=== PATIENT | male | born 1960 | race Caucasian/White ===

== ENCOUNTER 2020-10-09 09:56 | Outpatient (REF) | payer OTHER, SELFPAY ==
--- NOTE | 2020-10-09 | US_ITS ---
EXAMINATION: US EXTRACRANIAL CAROTID DUPLEX, BILATERAL CLINICAL INFORMATION: Carotid stenosis COMPARISON: Previous exam September 2019 TECHNIQUE: Real-time ultrasound and Doppler techniques (integrating B-mode 2-D vascular images, Doppler spectral analysis and color-flow Doppler imaging) were utilized to interrogate the extracranial carotid arteries, the vertebral arteries and proximal subclavian arteries bilaterally. The degree of stenosis is determined by criteria similar to NASCET. FINDINGS: Right Side: 1. There is mild atherosclerotic plaque seen in the bifurcation/proximal ICA region. 2. The common carotid artery PSV proximally is 113 cm/s and distally 103 cm/s. 3. The proximal internal carotid artery velocities are 94 cm/s systolic and 24 cm/s diastolic. 4. The proximal external carotid artery PSV is 123 cm/s. 5. The vertebral artery shows antegrade flow. 6. The subclavian artery waveforms are normal. Left Side: 1. There is mild atherosclerotic plaque seen in the bifurcation/proximal ICA region. 2. The common carotid artery PSV proximally is 111 cm/s and distally 111 cm/s. 3. The proximal internal carotid artery velocities are 97 cm/s systolic and 24 cm/s diastolic. 4. The proximal external carotid artery PSV is 131 cm/s. 5. The vertebral artery shows antegrade flow. 6. The subclavian artery waveforms are normal. US/US abdominal aortic aneurysm IMPRESSION: 1. RIGHT: Mild atherosclerotic plaque. 0-49% right ICA stenosis. 2. LEFT: Mild atherosclerotic plaque. 0-49% left ICA stenosis. 3. There is no change in the category severity of disease when compared to the previous study dated September 2019.
--- NOTE | 2020-10-09 | US_ITS ---
EXAMINATION: US EXTRACRANIAL CAROTID DUPLEX, BILATERAL CLINICAL INFORMATION: Carotid stenosis COMPARISON: Previous exam September 2019 TECHNIQUE: Real-time ultrasound and Doppler techniques (integrating B-mode 2-D vascular images, Doppler spectral analysis and color-flow Doppler imaging) were utilized to interrogate the extracranial carotid arteries, the vertebral arteries and proximal subclavian arteries bilaterally. The degree of stenosis is determined by criteria similar to NASCET. FINDINGS: Right Side: 1. There is mild atherosclerotic plaque seen in the bifurcation/proximal ICA region. 2. The common carotid artery PSV proximally is 113 cm/s and distally 103 cm/s. 3. The proximal internal carotid artery velocities are 94 cm/s systolic and 24 cm/s diastolic. 4. The proximal external carotid artery PSV is 123 cm/s. 5. The vertebral artery shows antegrade flow. 6. The subclavian artery waveforms are normal. Left Side: 1. There is mild atherosclerotic plaque seen in the bifurcation/proximal ICA region. 2. The common carotid artery PSV proximally is 111 cm/s and distally 111 cm/s. 3. The proximal internal carotid artery velocities are 97 cm/s systolic and 24 cm/s diastolic. 4. The proximal external carotid artery PSV is 131 cm/s. 5. The vertebral artery shows antegrade flow. 6. The subclavian artery waveforms are normal. US/US carotid duplex BI IMPRESSION: 1. RIGHT: Mild atherosclerotic plaque. 0-49% right ICA stenosis. 2. LEFT: Mild atherosclerotic plaque. 0-49% left ICA stenosis. 3. There is no change in the category severity of disease when compared to the previous study dated September 2019.
== END 2020-10-09 09:57 | disposition home or self-care (01) ==
LOC: HO.HMGCX 09:56
PROVIDERS: PCP Nurse Practitioner Family; Visit Provider Surgery Vascular Surgery
DX: I65.23 Occlusion and stenosis of bilateral carotid arteries (principal); I71.4 Abdominal aortic aneurysm, without rupture
CPT/HCPCS: 76706; 93880

== ENCOUNTER 2020-10-26 16:33 | Outpatient (REF) | payer OTHER, SELFPAY | END 2020-10-26 16:34 | disposition home or self-care (01) | LOC: HO.LAB 16:33 | PROVIDERS: Visit Provider Internal Medicine | DX: Z20.828 Contact with and (suspected) exposure to other viral communicable diseases (principal) | CPT/HCPCS: C9803; U0003 ==

== ENCOUNTER → 2020-11-01 14:37 | Outpatient (BNVA) | payer OTHER, SELFPAY | PROVIDERS: PCP Nurse Practitioner Family; Visit Provider Surgery Vascular Surgery | DX: Z76.89 Persons encountering health services in other specified circumstances (principal) ==

== ENCOUNTER 2021-04-22 16:28 | Outpatient (REF) | payer OTHER, SELFPAY ==
--- NOTE | ~2021-04-22 | XR_ITS ---
EXAMINATION: XR HAND, LEFT CLINICAL INFORMATION: Crush injury, pain index finger COMPARISON: None TECHNIQUE: PA, lateral, and oblique views of the left hand. FINDINGS: There is no acute or healing fracture, dislocation, destructive process. No visible radiopaque soft tissue foreign body digits. There are degenerative changes involving the DIP joints and borderline degenerative changes PIP joint. Metallic staple-like structure overlies the distal lateral forearm soft tissues 3.6 cm from the radial carpal compartment. The pronator quadratus fat pad appears normal. The ulnar variance is neutral. XR/XR hand LT min 3V IMPRESSION: 1. No fracture or dislocation. 2. Osteoarthritis DIP joints.
== END 2021-04-22 16:29 | disposition home or self-care (01) ==
LOC: HO.HMGCX 16:28
PROVIDERS: PCP Nurse Practitioner Family; Visit Provider Nurse Practitioner Family
DX: S67.22XA Crushing injury of left hand, initial encounter (principal)
CPT/HCPCS: 73130

== ENCOUNTER 2021-11-22 07:47 | Outpatient (REF) | payer OTHER, SELFPAY ==
--- NOTE | ~2021-11-22 | US_ITS ---
EXAMINATION: US RETROPERITONEAL LIMITED (AORTA) CLINICAL INFORMATION: Abdominal aortic aneurysm without rupture. COMPARISON: Ultrasound aorta 10/09/2020 and 09/16/2019. TECHNIQUE: Brothers-scale, color Doppler and spectral Doppler evaluation of the abdominal aorta. FINDINGS: There is atherosclerotic disease. The measurements of the aorta in maximum AP and transverse dimensions respectively are as follows: Proximal: 2.6 x 1.8 cm. Mid: 1.9 x 1.9 cm. Distal: 2.5 x 3.3 cm. PSV: 66.0 cm/s. The measurements of the common iliac arteries in maximum AP and TRV dimensions are as follows: Right Common Iliac Artery: 1.1 x 1.0 cm. Left Common Iliac Artery: 1.1 x 1.1 cm. US/US abdominal aortic aneurysm IMPRESSION: Infrarenal abdominal aortic aneurysm measuring 3.3 cm. This has mildly enlarged compared to 09/16/2019, consider further evaluation with CTA or MRA.
== END 2021-11-22 07:48 | disposition home or self-care (01) ==
LOC: HO.US 07:47
PROVIDERS: PCP Nurse Practitioner Family; Visit Provider Surgery Vascular Surgery
DX: I71.4 Abdominal aortic aneurysm, without rupture (principal)
CPT/HCPCS: 76706

== ENCOUNTER → 2021-11-26 10:52 | Outpatient (BNVA) | payer OTHER, SELFPAY | PROVIDERS: PCP Nurse Practitioner Family; Visit Provider Surgery Vascular Surgery ==

== ENCOUNTER 2022-05-05 08:35 | Outpatient (REF) | payer OTHER, SELFPAY ==
[2022-05-05 11:31] LABS: MANUAL DIFF FLAG NO
[2022-05-05 11:41] LABS: Basophils Percent Auto 0.7 % (0-2); Eosinophils Absolute Auto 0.1 X10*3/uL (0.0-0.4); Eosinophils Percent Auto 1.9 % (0-4); Hematocrit 41.6 % (42.0-52.0); Hemoglobin 13.8 g/dl (14.0-18.0); Imm Gran Abs Auto 0.01 X10*3/uL (0.00-0.03); Imm Gran Pct Auto 0.2 % (0.0-0.4); Lymphocytes Absolute Auto 1.9 X10*3/uL (1.2-4.9); Lymphocytes Percent Auto 32.2 % (20-40); Mean Corpuscular HGB Conc 33.2 g/dl (31.0-36.0); Mean Corpuscular Hemoglobin 31.9 pg (27.0-33.0); Mean Corpuscular Volume 96.1 fL (80.0-98.0); Monocytes Absolute Auto 0.7 X10*3/uL (0.1-1.2); Monocytes Percent Auto 11.1 % (2-11); Neutrophils Absolute Auto 3.2 x10*3/uL (2.0-8.3); Neutrophils Percent Auto 53.9 % (45-73); Platelet Count 264 X10*3/uL (160-400); Red Blood Count 4.33 X10*6/uL (4.60-5.80); Red Cell Distribution Width 12.5 % (11.0-16.0); White Blood Count 5.8 X10*3/uL (4.8-10.8)
[2022-05-05 12:30] LABS: HBc Num1 0.14 S/CO (0.00-0.79); HBsAGNum1 0.22 S/CO (0.00-0.99); HIV AB/AG Nonreactive (Nonreactive); Hepatitis B Core Antibody Nonreactive (Nonreactive); Hepatitis B Surface Antigen Negative (Negative); ~HepC Num1 0.07 S/CO (0.00-0.79); ~Hepatitis B Surface Antibody REACTIVE (Nonreactive); ~Hepatitis C Antibody Nonreactive (Nonreactive)
[2022-05-05 12:31] LABS: Prostate Specific Antigen Scr 2.75 ng/mL (<0.05-4.0); TSH reflex Free T4 1.77 uIU/mL (0.32-4.0)
[2022-05-05 12:33] LABS: Alanine Aminotransferase 25 U/L (0-40); Albumin Level 3.9 g/dL (3.5-5.0); Alkaline Phosphatase 79 U/L (39-117); Anion Gap 13 (12-20); Aspartate Amino Transferase 32 U/L (5-37); Bilirubin Total 0.5 mg/dL (0.0-1.0); Blood Urea Nitrogen 24 mg/dL (9-16); C Reactive Protein 0.09 mg/dL (< or = 0.50); Calcium 9.1 mg/dL (8.4-10.2); Carbon Dioxide 25 mmol/L (22-29); Chloride 108 mmol/L (96-108); Cholesterol 109 mg/dL; Estimated Glomerular Filt Rate > 60; Glucose Fasting 115 mg/dL (60-99); HDL Cholesterol 32 mg/dL; LDL Cholesterol Calculated 61 mg/dl; Potassium 5.2 mmol/L (3.3-5.1); Sodium 141 mmol/L (135-145); Total Protein 6.7 g/dL (6.5-8.0); Triglycerides 80 mg/dL
[2022-05-05 12:43] LABS: Appearance Urine CLEAR; Color Urine YELLOW; Glucose Urine UA NEG (NEG); Leukocyte Esterase Urine NEG (NEG); Nitrite Urine NEG (NEG); Specific Gravity - Urine >= 1.030 (1.005-1.025); Urine Blood NEG (NEG); Urine Ketones NEG (NEG); Urine Protein NEG (NEG-TRACE)
[2022-05-05 12:48] LABS: Erythrocyte Sedimentation Rate 6 MM/HR (0-15)
[2022-05-07 08:10] LABS: Hepatitis A Antibody IgM 0.15 Index (0-0.79); ~Hepatitis A Antibody IgM Nonreactive (Nonreactive)
== END 2022-05-05 08:36 | disposition home or self-care (01) ==
LOC: HO.HMGCLDS 08:35
PROVIDERS: PCP Nurse Practitioner Family; Visit Provider Nurse Practitioner Family
DX: Z12.5 Encounter for screening for malignant neoplasm of prostate (principal); Z11.4 Encounter for screening for human immunodeficiency virus [HIV]; R63.4 Abnormal weight loss
CPT/HCPCS: 36415; 80053; 80061; 81003; 84153; 84443; 85025; 85652; 86140; 86704; 86706; 86709; 86803; 87340; 87389

== ENCOUNTER 2022-06-04 11:00 | Outpatient (REF) | payer OTHER, SELFPAY ==
[2022-06-04 13:50] LABS: Anion Gap 13 (12-20); Carbon Dioxide 24 mmol/L (22-29); Chloride 107 mmol/L (96-108); Potassium 4.7 mmol/L (3.3-5.1); Sodium 139 mmol/L (135-145)
== END 2022-06-04 11:01 | disposition home or self-care (01) ==
LOC: HO.HMGCLDS 11:00
PROVIDERS: PCP Nurse Practitioner Family; Visit Provider Nurse Practitioner Family
DX: E87.5 Hyperkalemia (principal)
CPT/HCPCS: 36415; 80051

== ENCOUNTER → 2022-07-09 12:40 | Outpatient (REF) | payer OTHER, SELFPAY ==
--- NOTE | 2022-07-09 12:43 | CA_ITS ---
Transthoracic Echocardiogram Patient (Last, First, Middle): Neftali Carney, Gender: Male Date of : 1960 Age: 62 Procedure Date: 07/09/2022 Procedure Type: Transthoracic Echocardiogram Location: OP Height: 172.72 cm Weight: 72.58 kg BSA: 1.86 m2 Heart Rate: 61 bpm BP: 130 / 75 mmHg [employer] Trimmer: CARL Green MD: Cleveland Sanchez [facility] License Distributor: Phillip Wren MD Symptoms: R01.1 - Cardiac murmur, unspecified Study Quality: Adequate ECG Rhythm: Sinus Conclusions: - 1. Normal LV systolic function with grade 1 diastolic dysfunction 2. Mild tricuspid regurgitation 3. Normal RV systolic pressure 4. No gross pericardial effusion Findings Left Ventricle Normal left ventricular size, thickness, and systolic function. The visually estimated ejection fraction is between 55-60%. Spectral Doppler is indicative of an impaired relaxation filling pattern. E/E prime ratio is <8, consistent with normal filling pressures. Evidence suggests grade I (mild) diastolic dysfunction. Right Ventricle Normal right ventricular cavity size and systolic function. Atria Both atria are normal in size. Interatrial shunt cannot be excluded. Aortic Valve Normal aortic valve structure and function. There is no aortic valve stenosis. There is no aortic valve regurgitation. Mitral Valve Normal mitral valve structure and function. There is trace mitral valve regurgitation. There is no mitral valve stenosis. Pulmonic Valve The pulmonic valve is likely normal. Tricuspid Valve Normal tricuspid valve structure. There is mild tricuspid valve regurgitation. The right ventricular systolic pressure is normal. The right ventricular systolic pressure is 23 mmHg. Normal right atrial pressure. There is no evidence of pulmonary hypertension. Great Vessels All visible segments of the aorta are normal in size. The pulmonary artery was not well visualized. Venous The inferior vena cava is normal in size and collapses greater than 50% with inspiration. Pericardium/Pleural There is no evidence of pericardial effusion. Prior Study Comparison No prior study available for comparison. Measurements 2D Linear Measurements IVSd: 0.90 0.6-0.9/0.6-1.0 cm LVIDd: 4.67 3.9-5.3/4.2-5.9 cm LVIDd Index: 2.51 2.4-3.2/2.2-3.1 cm/m2 LVIDs: 2.51 2.0-3.6 cm LVPWd: 0.95 0.7-1.1 cm LA Diam: 3.40 2.7-3.8/3.0-4.0 cm LAIDs Index: 1.83 1.5-2.3 cm/m2 LV Mass: 182.33 67-162/88-224 g LV Mass Index: 98.03 43-95/49-115 g/m2 LVOT Diam: 2.10 3.0+(-)1.3 cm 2D Systolic Function EF 4C: 57.80 >55% EF 2C: 55.00 >55% EF BiP: 56.90 >55% Mitral Valve MV Pk E: 0.60 MV PK A: 0.75 MV Decel Time: 218.00 E/A: 0.80 E'Lateral: 10.90 E'Medial: 8.70 E/E' Med: 6.90 E/E' Lat: 5.50 PHT: 64.00 MVA PHT: 3.44 Decel [place]: 2.74 Aortic Valve AoV Pk Beni: 1.36 AoV Mn Beni: 0.96 AoV VTI: 0.31 AoV Pk Grad: 7.00 Aov Mn Grad: 4.00 LEANA Cont.VTI: 2.44 LVOT LVOT Pk Beni: 1.04 LVOT Mn Beni: 0.72 LVOT VTI: 0.22 LVOT Pk Grad: 4.00 LVOT Mn Grad: 2.00 LVOT Diam: 2.10 LVOT Area: 3.46 Diastolic Function MV Pk E: 0.60 MV Pk A: 0.75 E/A: 0.80 E'Medial: 8.70 E/E' Med: 6.90 E' Laterial: 10.90 E/E' Lat: 5.50 Right Ventricle TAPSE (mm): 15.20 TVS' Beni: 9.68 Tricuspid Valve TR Pk Beni: 2.22 TR Pk Grad: 20.00 RA Press: 3.00 RVSP: 23.00 Great Vessels Aorta Sinus of Valsalva: 2.90 2.0-3.5 cm Ao Asc: 3.40 2.1-3.4 cm Pulmonary Valve PV Pk Beni: 1.17 Peak PV Grad: 5.00 Updated in Other Vendor System with Status of Final Phillip Wren MD electronically signed on 07/11/2022 10:12:42 AM with status of Final
== END ==
LOC: HO.CARD 12:40
PROVIDERS: PCP Nurse Practitioner Family; Visit Provider Nurse Practitioner Family
DX: R01.1 Cardiac murmur, unspecified (principal)
CPT/HCPCS: 93306

== ENCOUNTER 2022-12-02 09:13 | Outpatient (REF) | payer OTHER, SELFPAY ==
--- NOTE | ~2022-12-02 | US_ITS ---
EXAMINATION: US RETROPERITONEAL LIMITED (AORTA) CLINICAL INFORMATION: Abdominal aortic aneurysm, without rupture. COMPARISON: US retroperitoneal limited (aorta) 11/22/2021 and 10/09/2020. TECHNIQUE: Brothers-scale, color Doppler and spectral Doppler evaluation of the abdominal aorta. FINDINGS: The distal abdominal aorta demonstrates calcific atherosclerotic change and dilatation at 3.3 cm and unchanged from the 11/22/2021 study. The measurements of the aorta in maximum AP and transverse dimensions respectively are as follows: Proximal: 2.9 x 3.0 cm. Mid: 2.4 x 2.3 cm. Distal: 2.8 x 3.3 cm. PSV: 100 cm/s. The measurements of the common iliac arteries in maximum AP and TRV dimensions are as follows: Right Common Iliac Artery: 1.2 x 1.0 cm. Left Common Iliac Artery: 1.2 x 1.3 cm. US/US abdominal aortic aneurysm IMPRESSION: Infrarenal abdominal aortic aneurysm measuring 3.3 cm. Follow up study is recommended in 3 years' time.
--- NOTE | ~2022-12-02 | US_ITS ---
EXAMINATION: US EXTRACRANIAL CAROTID DUPLEX, BILATERAL CLINICAL INFORMATION: Carotid occlusion/stenosis. COMPARISON: 10/09/2020 TECHNIQUE: Real-time ultrasound and Doppler techniques (integrating B-mode 2-D vascular images, Doppler spectral analysis and color-flow Doppler imaging) were utilized to interrogate the extracranial carotid arteries, the vertebral arteries and proximal subclavian arteries bilaterally. The degree of stenosis is determined by criteria similar to NASCET. FINDINGS: Right Side: 1. There is mild atherosclerotic plaque seen in the bifurcation/proximal ICA region. 2. The common carotid artery PSV proximally is 122 cm/s and distally 97 cm/s. 3. The proximal internal carotid artery velocities are 71 cm/s systolic and 14 cm/s diastolic. 4. The proximal external carotid artery PSV is 106 cm/s. 5. The vertebral artery shows antegrade flow. 6. The subclavian artery waveforms are normal. Left Side: 1. There is mild atherosclerotic plaque seen in the bifurcation/proximal ICA region. 2. The common carotid artery PSV proximally is 115 cm/s and distally 98 cm/s. 3. The proximal internal carotid artery velocities are 128 cm/s systolic and 23 cm/s diastolic. At the time of the prior exam, maximal velocity was 97 cm/s and therefore disease class has increased. 4. The proximal external carotid artery PSV is 102 cm/s. 5. The vertebral artery shows antegrade flow. 6. The subclavian artery waveforms are normal. US/US carotid duplex BI IMPRESSION: 1. RIGHT: Minimal, non-hemodynamically significant stenosis of the proximal right internal carotid artery corresponding to a 0-49% stenosis by velocity criteria. 2. LEFT: Moderate, hemodynamically significant stenosis of the proximal left internal carotid artery corresponding to a 50-79% stenosis by velocity criteria, increasing from 0-49% at the time of the prior 10/09/2020 study.
== END 2022-12-02 09:14 | disposition home or self-care (01) ==
LOC: HO.US 09:13
PROVIDERS: PCP Nurse Practitioner Family; Visit Provider Surgery Vascular Surgery
DX: I65.23 Occlusion and stenosis of bilateral carotid arteries (principal); I71.40 Abdominal aortic aneurysm, without rupture, unspecified
CPT/HCPCS: 76706; 93880

== ENCOUNTER → 2022-12-04 12:58 | Outpatient (BNVA) | payer OTHER, SELFPAY | PROVIDERS: PCP Nurse Practitioner Family; Visit Provider Surgery Vascular Surgery | DX: Z13.89 Encounter for screening for other disorder (principal) ==

== ENCOUNTER 2023-11-11 09:43 | Outpatient (REF) | payer OTHER, SELFPAY | END 2023-11-11 09:44 | disposition home or self-care (01) | LOC: HO.US 09:43 | PROVIDERS: PCP Nurse Practitioner Family; Visit Provider Surgery Vascular Surgery | DX: I65.23 Occlusion and stenosis of bilateral carotid arteries (principal) | CPT/HCPCS: 93880 ==

== ENCOUNTER 2023-12-08 08:39 | Outpatient (AMB) | payer OTHER, SELFPAY ==
[2023-12-08 08:55] VITALS: BP 116/70; PULSE 71; O2SAT 100; BMI 25.1
--- NOTE | 2023-12-08 08:55 | MHC.OFFVIS ---
Intake Vital Signs 12/08/23 08:55 12/08/23 08:59 Height 5 ft 7 in Weight 160 lb BMI 25.1 BP 116/70 108/68 Blood Pressure Location Lt brachial Rt brachial Position Sitting Sitting Pulse 71 Pulse Source Pulse Oximeter Pulse Oximetry (%) 100 Oxygen Delivery Method Room Air Intake Visit Reasons: 1 yr follow up carotid US 11/11/23 Intake Note: Pt presents to the office today for a 1 year follow up carotid US 11/11/23. Pt states he is feeling well and denies any concerns at this time. Allergies Penicillins [PENICILLINS] Allergy (Unknown, Verified 12/08/23 09:00) THROAT SWELLED UP HPI 1 yr follow up carotid US 11/11/23 HPI Details Very pleasant 63-year-old gentleman presents for surveillance follow-up regarding carotids. Workup initially began about 5 years ago when he had CABG performed. At that time they did appreciate some carotid stenosis. In addition there was question of an aortic aneurysm. Now presents for routine follow-up with surveillance carotid ultrasound. COUNTS INCLUDE 234 BEDS AT THE [facility] Surgical History History of back surgery History of open heart surgery (~2017) Social History Housing: House Patient Tobacco Use Status: Former Tobacco user Quit Date: quit e-Cigarette/Vaping Use: Never Used Second Hand Smoke Exposure: No service: No Current occupational status: retired Cognitive needs: No Hearing needs: No Vision needs: No Review of Systems Const All systems reviewed & are unremarkable except as noted in HPI and below Reports no additional complaints ENT Reports Normal hearing present Card Denies chest pain, Denies chest pain at rest, Denies chest pain with activity and Denies pedal edema Resp Denies cough GI Denies abdominal pain Musc Denies abnormal gait, Denies muscle cramps and Denies radiating pain into limb Skin/Breast Denies skin ulcer and Denies wounds Neuro Reports Normal hearing present and Denies abnormal gait Psych Reports no additional complaints Physical Exam Vital Signs: Last Vital Signs Pulse 71 12/08/23 08:55 BP 108/68 12/08/23 08:59 Pulse Ox 100 12/08/23 08:55 Oxygen Delivery Method Room Air 12/08/23 08:55 BMI result Body Mass Index 25.1 Const General: cooperative, healthy appearing and comfortable Orientation/consciousness: oriented to person, oriented to place and oriented to time HEENT Head: Yes normal to inspection Neck Neck: Yes normal visual inspection Carotids: no bruits Chest Chest palpation & inspection: normal inspection of the chest Resp Effort & Inspection: normal respiratory effort and able to speak in complete sentences Auscultation: clear to auscultation bilaterally, no crackles, no rales, no rhonchi and no wheezes Cardio Rate: regular rate Rhythm: regular rhythm Heart sounds: S1 normal heart sound present and S2 normal heart sound present Bruits: no carotid bruits Peripheral pulses: Peripheral pulses 2+ throughout GI Inspection: Yes normal to inspection Skin Wounds: no wounds Hair: normal Neuro General: oriented to person, oriented to place and oriented to time Cranial nerves: Yes CN's II-XII intact bilaterally and Yes Normal hearing present Cognition (Neuro): normal cognition Motor exam (neuro): 5/5 motor strength present throughout Extrem Other: venous exam: No significant superficial varicosities or spider telangiectasias, minimal edema General: No clubbing, No cyanosis and No edema Psych Appearance: grossly normal Mental Status: mental status grossly normal Speech and movement: Normal speech and movement present Results Reviewed Results Reviewed: Carotid ultrasound dated 11/11/2023 demonstrates bilateral 0-49% stenosis Assessment & Plan Assessment & Plan (1) Carotid stenosis, bilateral: Code(s): I65.23 - Occlusion and stenosis of bilateral carotid arteries Plan: In short patient has asymptomatic carotid disease. We have reviewed signs and symptoms of a stroke. We also discussed risk factor modification inclusive a healthy diet low in cholesterol. The patient will follow up with us with surveillance ultrasound of the carotids 1 year. Should there be any changes or signs or symptoms of a stroke we will be happy to see them back sooner. Thank you for allowing us to participate in this patient's care. If there are any questions or concerns please do not hesitate to contact us. (2) AAA (abdominal aortic aneurysm) without rupture: Code(s): I71.4 - Abdominal aortic aneurysm, without rupture Qualifiers: Abdominal aorta location: infrarenal aorta Qualified Code(s): I71.43 - Infrarenal abdominal aortic aneurysm, without rupture Plan: 12/02/2022 measured 3.3 cm. Yasmin ruiz in 3-5 years Orders: Orders US carotid duplex BI 364 Days I65.23 - Occlusion and stenosis of bilateral carotid arteries Coding Level of Care Code Est Pt Level 4 (11482) Diagnoses Carotid stenosis, bilateral I65.23 Infrarenal abdominal aortic aneurysm (AAA) without rupture I71.43 Abdominal aorta location: infrarenal aorta
[2023-12-08 08:59] VITALS: BP 108/68
== END 2023-12-08 09:25 | disposition home or self-care (01) ==
PROVIDERS: PCP Nurse Practitioner Family; Visit Provider Surgery Vascular Surgery
DX: I65.23 Occlusion and stenosis of bilateral carotid arteries (principal); I71.43 Infrarenal abdominal aortic aneurysm, without rupture
CPT/HCPCS: 99213

== ENCOUNTER → 2023-12-08 08:39 | Outpatient (BNVA) | payer OTHER, SELFPAY | PROVIDERS: PCP Nurse Practitioner Family; Visit Provider Surgery Vascular Surgery ==

== ENCOUNTER 2024-06-02 08:52 | Outpatient (AMB) | payer OTHER, SELFPAY ==
--- NOTE | 2024-06-02 09:02 | MHC.PC.OV ---
Vital Signs 06/02/24 09:03 Height 5 ft 7 in Weight 151 lb BMI 23.6 BP 116/80 Blood Pressure Location Lt brachial Position Sitting Pulse 64 Pulse Source Pulse Oximeter Pulse Oximetry (%) 100 Oxygen Delivery Method Room Air Intake Visit Reasons: Medications F/U Intake Note: Patient here to follow up on meds. Allergies Penicillins [PENICILLINS] Allergy (Unknown, Verified 06/02/24 09:04) THROAT SWELLED UP Medication List - Last Reconciled 06/02/24 by LORI Sorenson aspirin 81 mg PO DAILY atorvastatin 80 mg PO BEDTIME 90 days bupropion HCl XL 300 mg PO DAILY metoprolol succinate ER 25 mg PO DAILY Tobacco use date assessed: 06/02/24 Dental Screening Dental Screen Date: 06/02/24 Did you have a dental visit in the last 12 months?: No Did you have a dental problem in the last 6 months where you did not have access to dental care?: No Was dental information given to patient?: Patient has dentist HPI Medications F/U HPI Details Pt has a hx of elevated fasting blood sugar. Will repeat labs. Denies polyuria, polydipsia, and neuropathy. Pt follows up with cardiology and vascular. Due for PSA, will order. Denies dribbling with urination, weak stream, and frequent nocturia. [facility] Surgical History History of back surgery History of open heart surgery (~2017) Social History Housing: House Patient Tobacco Use Status: Former Tobacco user e-Cigarette/Vaping Use: Never Used Second Hand Smoke Exposure: No service: No Current occupational status: retired Cognitive needs: No Hearing needs: No Vision needs: No Questionnaire PHQ-9 Over the last 2 weeks, how often have you been bothered by any of the following problems? 1. Little interest or pleasure in doing things: not at all 2. Feeling down, depressed, or hopeless: not at all 3. Trouble falling or staying asleep, or sleeping too much: not at all 4. Feeling tired or having little energy: not at all 5. Poor appetite or overeating: not at all 6. Feeling bad about yourself - or that you are a failure or have let yourself or your family down: not at all 7. Trouble concentrating on things, such as reading the newspaper or watching television: not at all 8. Moving or speaking so slowly that other people could have noticed. Or the opposite - being so fidgety or restless that you have been moving around a lot more than usual: not at all 9. Thoughts that you would be better off or of hurting yourself in some way: not at all Total score: 0 Depression Screening Interpretation: Negative Depression Screening Done: Yes 37069 - PHQ-9 Billing: Yes Source: Developed by Drs. Luis Magaña, Barbara Pelletier, Dennis Rosenthal and colleagues, with an educational tennille from [employer]. Thrive Questionnaire Date Thrive assessed: 05/26/24 I am a: Patient What is your living situation today?: I choose not to answer this question Within the past 12 months, did the food you bought not last and you didn't have the money to get more?: Never true Within the past 12 months, did you worry whether your food would run out before you got money to buy more?: Never true Do you have trouble paying for medicines?: No Do you have trouble getting transportation to medical appointments?: No Do you have trouble paying your heating and electricity bill?: No Do you have trouble taking care of your child, family member or friend?: No Do you have trouble with day-to-day activities such as bathing, preparing meals, shopping, managing finances, etc.?: No Are you currently unemployed and looking for a job?: No Are you interested in more education?: No Please select the resources that you would like help with: Housing/Half-Way Currently or been in a relationship where the following occur: No concerns reported THRIVE Score: 0 AUDIT C Alcohol Use Questionnaire (AUDIT-C) 1. How often do you have a drink containing alcohol?: Monthly or less 2. How many drinks containing alcohol do you have on a typical day when you are drinking?: 1 or 2 3. How often do you have six or more drinks on one occasion?: Never Total Score: 1 Score Reviewed/Action Taken: Yes CIRO-7 AMB Questionnaire CIRO-7 Date CIRO - 7 assessed: 06/02/24 Feeling nervous, anxious, or on edge: 0 = Not at all Not being able to stop or control worryin = Not at all Worrying too much about different things: 0 = Not at all Trouble relaxin = Not at all Being so restless that it is hard to sit still: 0 = Not at all Becoming easily annoyed or irritable: 0 = Not at all Feeling afraid as if something awful might happen: 0 = Not at all Total CIRO-7 score (0-4 normal; 5-9 mild; 10-14 moderate; 15-21 severe): 0 Source: Developed by Drs. Luis Magaña, Barbara Pelletier, Dennis Rosenthal and colleagues, with an educational tennille from [employer]. CIRO-7 Assessment Billing CIRO-7 Assessment Tool: CIRO-7 Assessment 12518 Review of Systems Const Reports as per HPI Physical exam (Primary Care) Vital Signs: Last Vital Signs Pulse 64 06/02/24 09:03 BP 116/80 06/02/24 09:03 Pulse Ox 100 06/02/24 09:03 Oxygen Delivery Method Room Air 06/02/24 09:03 BMI result Body Mass Index 23.6 Tobacco/Smoking Status: Tobacco use Status Tobacco use date assessed 06/02/24 06/02/24 09:07 Patient Tobacco Use Status Former Tobacco user 06/02/24 09:03 e-Cigarette/Vaping Use Never Used 06/02/24 09:03 PHQ-9: PHQ-9 Score PHQ-9: Total score 0 06/02/24 09:07 Depression Screening Interpretation: Negative Thrive Assessment: Date of Thrive Assessment Date Thrive assessed 05/26/24 06/02/24 09:03 Currently or been in a relationship where the following occur: No concerns reported Const General: cooperative Orientation/consciousness: patient oriented x3 Neuro General: patient oriented x3 Psych Appearance: grossly normal Mental Status: mental status grossly normal Speech and movement: Normal speech and movement present Affect: normal affect Attitude: cooperative Thought process: Normal thought process present Thought content: Normal thought content present Insight: Good insight present (Psych) Judgement: Good judgement present (Psych) Assessment and Plan Assessment & Plan (1) Elevated fasting blood sugar: Code(s): R73.01 - Impaired fasting glucose Plan: Labs ordered (2) Screening for prostate cancer: Code(s): Z12.5 - Encounter for screening for malignant neoplasm of prostate Plan: PSA ordered Plan The patient agreed to the use of a medical front desk coordinator for this encounter. Scribed for LORI Sterling by Carmen Quintero medical front desk coordinator, on 06/02/2024 at 09:15 EST. Orders: Orders UA CC w/rflx Micro + Cult Today R73.01 - Impaired fasting glucose Lipid Panel Today R73.01 - Impaired fasting glucose Complete Blood Count Auto Diff Today R73.01 - Impaired fasting glucose Comprehensive [place]. Panel Fast Today R73.01 - Impaired fasting glucose TSH reflex Free T4 Today R73.01 - Impaired fasting glucose Prostate Specific Antigen Scr Today Z12.5 - Encounter for screening for malignant neoplasm of prostate Coding Level of Care Code Est Pt Level 3 (49903) Diagnoses Elevated fasting blood sugar R73.01 Screening for prostate cancer Z12.5 Additional Codes CIRO-7 Assessment Billing - CIRO-7 Assessment Tool: CIRO-7 Assessment 94647 ([id number])
[2024-06-02 09:03] VITALS: BP 116/80; PULSE 64; O2SAT 100; BMI 23.6
== END 2024-06-02 10:22 | disposition home or self-care (01) ==
PROVIDERS: PCP Nurse Practitioner Family; Visit Provider Nurse Practitioner Family
DX: R73.01 Impaired fasting glucose (principal); Z12.5 Encounter for screening for malignant neoplasm of prostate
CPT/HCPCS: 99213

== ENCOUNTER 2024-06-22 09:34 | Outpatient (REF) | payer OTHER, SELFPAY ==
[2024-06-22 10:32] LABS: MANUAL DIFF FLAG NO
[2024-06-22 10:36] LABS: Basophils Absolute Auto 0.1 X10*3/uL (0.0-0.2); Basophils Percent Auto 0.9 % (0-2); Eosinophils Absolute Auto 0.2 X10*3/uL (0.0-0.4); Eosinophils Percent Auto 2.3 % (0-4); Hematocrit 43.2 % (42.0-52.0); Hemoglobin 14.7 g/dl (14.0-18.0); Imm Gran Abs Auto 0.02 X10*3/uL (0.00-0.03); Imm Gran Pct Auto 0.3 % (0.0-0.4); Lymphocytes Percent Auto 30.5 % (20-40); Mean Corpuscular Volume 94.1 fL (80.0-98.0); Mean Platelet Volume 10.6 fL (9.4-12.4); Monocytes Absolute Auto 0.7 X10*3/uL (0.1-1.2); Monocytes Percent Auto 10.3 % (2-11); Neutrophils Absolute Auto 3.7 x10*3/uL (2.0-8.3); Neutrophils Percent Auto 55.7 % (45-73); Platelet Count 255 X10*3/uL (160-400); Red Blood Count 4.59 X10*6/uL (4.60-5.80); Red Cell Distribution Width 12.7 % (11.0-16.0); White Blood Count 6.6 X10*3/uL (4.8-10.8)
[2024-06-22 10:46] LABS: Appearance Urine Clear; Color Urine Yellow; Glucose Urine UA Negative (Negative); Leukocyte Esterase Urine Negative (Negative); Nitrite Urine Negative (Negative); Specific Gravity - Urine 1.015 (1.005-1.025); Urine Blood Negative (Negative); Urine Ketones Negative (Negative); Urine Protein Negative (Neg-Trace)
[2024-06-22 11:03] LABS: Alanine Aminotransferase 19 U/L (0-40); Albumin Level 3.9 g/dL (3.5-5.0); Alkaline Phosphatase 71 U/L (39-117); Anion Gap 9 (12-20); Aspartate Amino Transferase 25 U/L (5-37); Bilirubin Total 0.8 mg/dL (0.0-1.0); Blood Urea Nitrogen 15 mg/dL (9-16); Calcium 9.5 mg/dL (8.4-10.2); Carbon Dioxide 30 mmol/L (22-29); Chloride 104 mmol/L (96-108); Cholesterol 125 mg/dL (<200); Estimated Glomerular Filt Rate > 60; Glucose Fasting 114 mg/dL (60-99); HDL Cholesterol 36 mg/dL (>40); LDL Cholesterol Calculated 76 mg/dL (<100); Potassium 5.1 mmol/L (3.3-5.1); Sodium 138 mmol/L (135-145); Total Protein 6.7 g/dL (6.5-8.0); Triglycerides 67 mg/dL (<150)
[2024-06-22 11:07] LABS: TSH reflex Free T4 2.99 uIU/mL (0.32-4.0)
[2024-06-22 11:37] LABS: Prostate Specific Antigen Scr 4.26 ng/mL (<0.05-4.0)
== END 2024-06-22 09:35 | disposition home or self-care (01) ==
LOC: HO.HMGCLDS 09:34
PROVIDERS: PCP Nurse Practitioner Family; Visit Provider Nurse Practitioner Family
DX: Z12.5 Encounter for screening for malignant neoplasm of prostate (principal); Z13.6 Encounter for screening for cardiovascular disorders; R73.01 Impaired fasting glucose
CPT/HCPCS: 36415; 80053; 80061; 81003; 84153; 84443; 85025

== ENCOUNTER 2024-08-08 14:15 | Outpatient (AMB) | payer OTHER, SELFPAY ==
[2024-08-08 14:54] VITALS: BP 110/68; PULSE 110; TEMP 36.6; O2SAT 97; BMI 23.6
--- NOTE | 2024-08-08 14:54 | MHC.OFFWIV ---
Intake Vital Signs 08/08/24 14:54 Height 5 ft 7 in Weight 151 lb BMI 23.6 BP 110/68 Blood Pressure Location Rt brachial Position Sitting Pulse 110 H Pulse Source Pulse Oximeter Temp 97.9 F Temp Source Oral Pulse Oximetry (%) 97 Intake Visit Reasons: EP lower right rib tender to the touch Intake Note: pt is here for lower right rib discomfort, tender to touch Patient Tobacco Use Status: Former Tobacco user Allergies Penicillins [PENICILLINS] Allergy (Unknown, Verified 08/08/24 14:55) THROAT SWELLED UP Do you need a note to return to daycare/school/sports/work: No HPI HPI Comments History of Present Illness Details Patient is a 64-year-old male complaining of right-sided back/rib pain for the last 4 days. He denies any injury or overuse of that area. He states he has had a broken rib before and it does not feel like that. He states it is tender more in between the ribs then on the ribs themselves. He denies a cough or pain with deep inspiration. He has not tried anything to make it feel better. He states nothing seems to make it worse except for pushing on the area. [facility] Surgical History History of back surgery History of open heart surgery (~2017) Social History Housing: House Patient Tobacco Use Status: Former Tobacco user e-Cigarette/Vaping Use: Never Used Second Hand Smoke Exposure: No service: No Current occupational status: retired Cognitive needs: No Hearing needs: No Vision needs: No Review of Systems Const All systems reviewed & are unremarkable except as noted in HPI and below Physical Exam Vital Signs: Last Vital Signs Temp 97.9 F 08/08/24 14:54 Pulse 110 H 08/08/24 14:54 BP 110/68 08/08/24 14:54 Pulse Ox 97 08/08/24 14:54 BMI result Body Mass Index 23.6 Const General: cooperative, healthy appearing and comfortable Orientation/consciousness: patient oriented x3 HEENT Head: Yes normal to inspection and Yes normocephalic General nose exam: Normal external nose present Face and sinus: Yes normal facial exam Eyes General: appearance normal, both eyes and all related structures Chest Chest palpation & inspection: tenderness costal cartilage right mid-scapular line Resp Effort & Inspection: normal respiratory effort and able to speak in complete sentences Back/Spine/Pelvis Cervical Spine: cervical ROM normal Neuro General: patient oriented x3 Assessment & Plan Assessment & Plan (1) Costochondritis, acute: Code(s): M94.0 - Chondrocostal junction syndrome [Tietze] Plan: Recommended using Aleve ATC for the next 4-5 days along with diclofenac gel or Salonpas patches. If no improvement in his symptoms, patient should follow up with his PCP as he may need a chest x-ray Plan see above Coding Level of Care Code Est Pt Level 3 (40812) Diagnoses Costochondritis, acute M94.0
== END 2024-08-08 15:46 | disposition home or self-care (01) ==
PROVIDERS: PCP Nurse Practitioner Family; Visit Provider Physician Assistant
DX: M94.0 Chondrocostal junction syndrome [Tietze] (principal)

== ENCOUNTER → 2024-08-08 14:15 | Outpatient (BNVA) | payer OTHER, SELFPAY | PROVIDERS: PCP Nurse Practitioner Family ==

== ENCOUNTER 2024-08-19 09:08 | Outpatient (AMB) | payer OTHER, SELFPAY ==
--- NOTE | 2024-08-19 09:16 | MHC.OFFVIS ---
Intake Visit Reasons: elevated PSA Intake Note: Patient is present for ELEVATED PSA Urology Medication:NONE Antibiotic Allergy:PENICILLIN Blood Thinner:ASPIRIN National Service Officer Required: No Allergies Penicillins [PENICILLINS] Allergy (Unknown, Verified 08/19/24 09:16) THROAT SWELLED UP HPI Comments Details: Neftali is a 64-year-old male who is here for evaluation for elevated PSA. Reviewed labs-06/22/2024-PSA-4.26 ng/mL. I have discussed that elevated PSA may indicate changes in the prostate including benign enlargement, cancer and an inflammatory condition. I have discussed doing a biopsy has risks and that management in early detection of prostate cancer may include active surveillance. Repeat PSA. [facility] Surgical History History of back surgery History of open heart surgery (~2017) Social History Housing: House Patient Tobacco Use Status: Former Tobacco user e-Cigarette/Vaping Use: Never Used Second Hand Smoke Exposure: No service: No Current occupational status: retired Cognitive needs: No Hearing needs: No Vision needs: No Review of Systems Const All systems reviewed & are unremarkable except as noted in HPI and below Reports no additional complaints Eyes Reports no additional complaints ENT Reports no additional complaints Card Reports no additional complaints Resp Reports no additional complaints GI Reports no additional complaints Reports as per HPI Musc Reports no additional complaints Skin/Breast Reports system reviewed and no additional complaints, except as documented Neuro Reports no additional complaints Psych Reports no additional complaints Endo Reports no additional complaints Zia/Lymph Reports no additional complaints Aller/Immun Reports no additional complaints Physical Exam Const General: healthy appearing, no acute distress and well developed Orientation/consciousness: patient oriented x3 HEENT Head: Yes normocephalic and Yes atraumatic Eyes Conjunctivae: conjunctivae normal Neck Neck: Yes normal visual inspection Chest Chest palpation & inspection: normal inspection of the chest Resp Effort & Inspection: normal respiratory effort Cardio Rate: regular rate GI Inspection: Yes normal to inspection Palpation (GI): Soft to palpation Skin General skin exam: no rashes or lesions noted Neuro General: patient oriented x3 Extrem General: No pedal edema Psych Appearance: grossly normal Affect: normal affect Results AMB Urinalysis, Automated UA Leukoctes 0 Lynne/uL Last Edit by CAROL Hyman on 08/19/24 09:45 UA Nitrite Negative Last Edit by CAROL Hyman on 08/19/24 09:45 UA Urobilinogen 0.2 mg/dL Last Edit by CAROL Hyman on 08/19/24 09:45 UA Protein 15 mg/dL Last Edit by CAROL Hyman on 08/19/24 09:45 UA pH 6.0 Last Edit by Ramona Caro [facility] on 08/19/24 09:45 UA Blood 0 Tony/uL Last Edit by Ramona Caro [facility] on 08/19/24 09:45 UA Specific [place] 1.020 Last Edit by CAROL Hyman on 08/19/24 09:45 UA Ketone Negative Last Edit by CAROL Hyman on 08/19/24 09:45 UA Bilirubin 1 mg/dL Last Edit [facility] on 08/19/24 09:45 UA Glucose 0 mg/dL Last Edit by Ramona Car[facility] on 08/19/24 09:45 Results Reviewed Results Reviewed: Laboratory Last Values Urine pH (Auto) 6.0 08/19/24 09:44 Specific [place] (Auto) 1.020 08/19/24 09:44 Urine Protein (Auto) 15 mg/dL 08/19/24 09:44 Glucose (UA)(Auto) 0 mg/dL 08/19/24 09:44 Urine Ketones (Auto) Negative 08/19/24 09:44 Urine Blood (Auto) 0 Tony/uL 08/19/24 09:44 Urine Nitrite (Auto) Negative 08/19/24 09:44 Urine Bilirubin (Auto) 1 mg/dL 08/19/24 09:44 Urine Urobilinogen (Auto) 0.2 mg/dL 08/19/24 09:44 Leukocyte Esterase (Auto) 0 Lynne/uL 08/19/24 09:44 Assessment & Plan Assessment & Plan (1) Elevated prostate specific antigen (PSA): Code(s): R97.20 - Elevated prostate specific antigen [PSA] Category: Medical (2) Screening for prostate cancer: Code(s): Z12.5 - Encounter for screening for malignant neoplasm of prostate Category: Medical (3) BPH (benign prostatic hyperplasia): Code(s): N40.0 - Benign prostatic hyperplasia without lower urinary tract symptoms Category: Medical Plan Repeat PSA Orders: Orders AMB Urinalysis Automated 08/19/24 Z13.9 - Encounter for screening, unspecified Patient Instructions: The patient had an opportunity to ask questions regarding treatment plan. The patient expressed understanding and agreement with the above treatment plan. The patient is aware they should contact our office by phone for worsening of their current condition or the appearance of new symptoms. Compliance is encouraged with any medications and followup testing that is ordered. It is a privilege to be allowed the opportunity to participate in the urologic care of your patient. If you have any questions or concerns regarding treatment for the above conditions please do not hesitate to contact me. The office telephone contact is [phone]. This note is constructed in part using voice recognition software. While every effort has been made to ensure accuracy herd tester errors may have been included. Yours sincerely, Phil Hernandez MD Coding Level of Care Code New Pt Level 4 (21370) Diagnoses Elevated prostate specific antigen (PSA) R97.20 Screening for prostate cancer Z12.5 BPH (benign prostatic hyperplasia) N40.0
== END 2024-08-19 10:12 | disposition home or self-care (01) ==
PROVIDERS: PCP Nurse Practitioner Family; Visit Provider Urology
DX: R97.20 Elevated prostate specific antigen [PSA] (principal); Z12.5 Encounter for screening for malignant neoplasm of prostate; N40.0 Benign prostatic hyperplasia without lower urinary tract symptoms
CPT/HCPCS: 99204

== ENCOUNTER → 2024-08-19 09:08 | Outpatient (BNVA) | payer OTHER, SELFPAY | PROVIDERS: PCP Nurse Practitioner Family; Visit Provider Urology | DX: R97.20 Elevated prostate specific antigen [PSA] (principal); N40.0 Benign prostatic hyperplasia without lower urinary tract symptoms | CPT/HCPCS: 81003 ==

== ENCOUNTER 2024-09-27 11:39 | Outpatient (REF) | payer OTHER, SELFPAY ==
[2024-09-27 14:37] LABS: PSA,Total (Free>4and<10) 3.06 ng/mL (0.00-4.00)
== END 2024-09-27 11:40 | disposition home or self-care (01) ==
LOC: HO.HMGCLDS 11:39
PROVIDERS: PCP Nurse Practitioner Family; Visit Provider Urology
DX: R97.20 Elevated prostate specific antigen [PSA] (principal); Z12.5 Encounter for screening for malignant neoplasm of prostate
CPT/HCPCS: 36415; 84153

== ENCOUNTER 2024-10-10 09:04 | Outpatient (AMB) | payer OTHER, SELFPAY ==
--- NOTE | 2024-10-10 09:08 | MHC.OFFVIS ---
Vital Signs 10/10/24 09:09 Height 5 ft 7 in Weight 150 lb 5.684 oz BMI 23.5 BP 118/68 Blood Pressure Location Rt brachial Position Sitting Pulse 58 Pulse Source Pulse Oximeter Pulse Oximetry (%) 99 Oxygen Delivery Method Room Air Intake Visit Reasons: What Cheer consult Intake Note: Relevant Flags or Indicators ? Requires Turret Press Operator? N Neftali presents in office today for a scheduled colonoscopy consultation Prior hx of colo? Pt reports they had a prior colo >10 YR ago via [facility]. Pt reports that it was completely normal. Relevant GI Sx as reported per pt? None ? Hx of any recent surgeries? None Turret Press Operator Required: No Allergies Penicillins [PENICILLINS] Allergy (Unknown, Verified 10/10/24 09:09) THROAT SWELLED UP Medication List - Last Reconciled 10/10/24 by Shagufta Johnson, HISTORICAL ARCHEOLOGIST- atorvastatin 80 mg PO BEDTIME 90 days bupropion HCl XL 300 mg PO DAILY metoprolol succinate ER 25 mg PO DAILY HPI HPI What Cheer consult: Details: 64 year old? male with last medical history of costochondritis, BP age, systolic murmur, carotid stenosis, AAA, coronary bypass in 2017 is here today for pre colonoscopy screening.? Patient was sent to us by his PCP.? Last colonoscopy over 10 years ago at [facility]..? Patient denies any gastrointestinal symptoms in the past or at present.? Denies any personal or family history of gastrointestinal disease, colon polyps, or CRC.? Denies history of difficulty with sedation or anesthesia in the past.? Negative for history of sleep apnea.? Denies any history of renal, pulmonary, or hepatic disease.?? No history of infectious? diseases like hepatitis A, B, C, HIV or tuberculosis.? Patient is not on any anticoagulation. Patient had triple bypass in 2017. No longer takes any anticoagulation medication. Was on aspirin in the past. Patient has seen his inventory analyst few months ago and he follows up with him on a yearly basis. Patient does not require any further testing. Reports to be feeling well. Patient AAA and is followed up by Dr. Villarreal [facility] Surgical History History of back surgery History of open heart surgery (~2017) Social History Housing: House Patient Tobacco Use Status: Former Tobacco user e-Cigarette/Vaping Use: Never Used Second Hand Smoke Exposure: No service: No Current occupational status: retired Cognitive needs: No Hearing needs: No Vision needs: No Review of Systems Const Denies weight gain and Denies weight loss ENT Reports no additional complaints, Denies dysphagia and Denies odynophagia Card Reports no additional complaints Resp Reports no additional complaints GI Denies abdominal pain, Denies belching, Denies melena, Denies bloating, Denies change in bowel habits, Denies dysphagia, Denies excessive flatus, Denies dyspepsia, Denies heartburn, Denies diarrhea, Denies loose stools, Denies nausea, Denies odynophagia and Denies vomiting Reports no additional complaints Musc Reports no additional complaints Neuro Reports no additional complaints Psych Reports no additional complaints Endo Reports no additional complaints Physical Exam Vital Signs: Last Vital Signs Pulse 58 10/10/24 09:09 BP 118/68 10/10/24 09:09 Pulse Ox 99 10/10/24 09:09 Oxygen Delivery Method Room Air 10/10/24 09:09 BMI result Body Mass Index 23.5 Const General: healthy appearing, no acute distress and well developed Nutritional Appearance: well nourished Orientation/consciousness: patient oriented x3 Resp Effort & Inspection: normal respiratory effort, able to speak in complete sentences, no tracheal deviation and symmetric chest movement Auscultation: clear to auscultation bilaterally Cardio Rate: regular rate GI Inspection: Yes normal to inspection and No distended Palpation (GI): Soft to palpation, not firm, nontender and No hepatosplenomegaly present Auscultation: normal bowel sounds General: Yes no CVA tenderness Back/Spine/Pelvis Back: no CVA tenderness Skin General skin exam: elasticity normal, turgor normal and dry skin Neuro General: patient oriented x3 Psych Appearance: grossly normal Mental Status: mental status grossly normal Assessment & Plan Assessment & Plan (1) Screening for colon cancer: Code(s): Z12.11 - Encounter for screening for malignant neoplasm of colon Category: Medical Plan Patient denies any GI, cardiac or respiratory symptoms.? Denies any issues with anesthesia in the past.? Denies any history of sleep apnea.? No history infectious diseases in the past or present.? Not on any anticoagulation therapy.? No family or personal history of colon cancer or polyps.? Patient denies melena, hematochezia, unintentional weight loss or ribbon like stools.? Discussed at length the pre-procedure,? prep, diet & medications as well as what to expect prior, during and after the procedure.?? Stressed the importance of good bowel prep.? Recommended the use of Vaseline or Calmoseptine OTC & baby wipes with bowel movements to promote comfort.? ?Patient verbalizes understanding and agrees to plan of care.? He was given the opportunity to ask questions and all questions answered.? We will see him after the procedure.? Medications: New bisacodyl (Dulcolax (bisacodyl)) take 4 tabs at noon the day before your colonoscopy 20 mg (4 x 5 mg) PO ONCE 1 day 4 tabs 0RF Z12.11 - Encounter for screening for malignant neoplasm of colon polyethylene glycol 3350 (Miralax) As directed by gastroenterology department at [facility] 238 grams PO ONCE 238 grams 0RF Z12.11 - Encounter for screening for malignant neoplasm of colon Coding Level of Care Code New Pt Level 3 (98002) Diagnoses Screening for colon cancer Z12.11 Time Spent (min) 40 Comment 30 minutes spent with patient and additional 10 minutes spent reviewing his records
[2024-10-10 09:09] VITALS: BP 118/68; PULSE 58; O2SAT 99; BMI 23.5
== END 2024-10-10 09:41 | disposition home or self-care (01) ==
PROVIDERS: PCP Nurse Practitioner Family; Visit Provider Nurse Practitioner Family
DX: Z01.818 Encounter for other preprocedural examination (principal); Z12.11 Encounter for screening for malignant neoplasm of colon
CPT/HCPCS: S0285

== ENCOUNTER 2024-11-15 09:44 | Outpatient (REF) | payer OTHER, SELFPAY ==
--- NOTE | ~2024-11-15 | US_ITS ---
CLINICAL HISTORY: I65.23 - Occlusion and stenosis of bilateral carotid arteries US Bilateral Carotid Duplex Comparison: None Findings: 89 plaque within the 84 centimeters/second. No significant plaque within the carotid bulbs. Color doppler and spectral tracings normal. Peak systolic velocities: Right CCA: 111 cm/s. Right ICA: 99 cm/s. Right ECA: 89 centimeters/second. Right vertebral artery flow antegrade. Left CCA: 101 cm/s. Left ICA: 87 cm/s. Left ECA: 84 centimeters/second. Left vertebral artery flow antegrade. IMPRESSION: Normal carotid velocities, no significant stenosis (0-49% stenosis). This document has been electronically signed by: Araceli Lemos MD on 11/16/2024 15:47:08
== END 2024-11-15 09:45 | disposition home or self-care (01) ==
LOC: HO.US 09:44
PROVIDERS: PCP Nurse Practitioner Family; Visit Provider Surgery Vascular Surgery
DX: I65.23 Occlusion and stenosis of bilateral carotid arteries (principal)
CPT/HCPCS: 93880

== ENCOUNTER → 2024-11-15 09:46 | Outpatient (BNV) | payer OTHER, SELFPAY | PROVIDERS: PCP Nurse Practitioner Family; Visit Provider Radiology Diagnostic Radiology | DX: I65.23 Occlusion and stenosis of bilateral carotid arteries (principal) | CPT/HCPCS: 93880 ==

== ENCOUNTER 2024-11-29 13:11 | Outpatient (AMB) | payer OTHER, SELFPAY ==
--- NOTE | 2024-11-29 13:15 | MHC.OFFVIS ---
Intake Visit Reasons: 1 yr follow up carotid 11/16/24 Intake Note: Patient presents for 1 year carotid follow up. No complaints. Accompanied by: Self / Same As Patient Allergies Penicillins [PENICILLINS] Allergy (Unknown, Verified 11/29/24 13:16) THROAT SWELLED UP HPI HPI 1 yr follow up carotid 11/16/24: Details: Very pleasant 64-year-old gentleman presents for routine carotid surveillance. This all began just prior to his CABG. He is asymptomatic from his carotid standpoint in he does have a prior history of an aortic aneurysm. He now presents for routine follow-up [facility] Surgical History History of back surgery History of open heart surgery (~2017) Social History Housing: House Patient Tobacco Use Status: Former Tobacco user e-Cigarette/Vaping Use: Never Used Second Hand Smoke Exposure: No service: No Current occupational status: retired Cognitive needs: No Hearing needs: No Vision needs: No Review of Systems Const All systems reviewed & are unremarkable except as noted in HPI and below Reports no additional complaints ENT Reports Normal hearing present Card Denies chest pain, Denies chest pain at rest, Denies chest pain with activity and Denies pedal edema Resp Denies cough GI Denies abdominal pain Musc Denies abnormal gait, Denies muscle cramps and Denies radiating pain into limb Skin/Breast Denies skin ulcer and Denies wounds Neuro Reports Normal hearing present and Denies abnormal gait Psych Reports no additional complaints Physical Exam Const General: cooperative, healthy appearing and comfortable Orientation/consciousness: oriented to person, oriented to place and oriented to time HEENT Head: Yes normal to inspection Neck Neck: Yes normal visual inspection Carotids: no bruits Chest Chest palpation & inspection: normal inspection of the chest Resp Effort & Inspection: normal respiratory effort and able to speak in complete sentences Auscultation: clear to auscultation bilaterally, no crackles, no rales, no rhonchi and no wheezes Cardio Rate: regular rate Rhythm: regular rhythm Heart sounds: S1 normal heart sound present and S2 normal heart sound present Bruits: no carotid bruits Peripheral pulses: Peripheral pulses 2+ throughout GI Inspection: Yes normal to inspection Skin Wounds: no wounds Hair: normal Neuro General: oriented to person, oriented to place and oriented to time Cranial nerves: Yes CN's II-XII intact bilaterally and Yes Normal hearing present Cognition (Neuro): normal cognition Motor exam (neuro): 5/5 motor strength present throughout Extrem Other: venous exam: No significant superficial varicosities or spider telangiectasias, minimal edema General: No clubbing, No cyanosis and No edema Psych Appearance: grossly normal Mental Status: mental status grossly normal Speech and movement: Normal speech and movement present Results Reviewed Results Reviewed: Noninvasive carotid testing dated 11/15/2024 demonstrates bilateral 0-49% stenosis. Written report and images were reviewed. Aortic testing from 12/02/2022 demonstrates infrarenal aortic aneurysm of 3.3 cm. Assessment & Plan Assessment & Plan (1) Carotid stenosis, bilateral: Code(s): I65.23 - Occlusion and stenosis of bilateral carotid arteries Category: Medical Plan: In short patient has asymptomatic carotid disease. We have reviewed signs and symptoms of a stroke. We also discussed risk factor modification inclusive a healthy diet low in cholesterol. The patient has had 3 carotid tests that have demonstrated minimal disease. No further surveillance of this is required.. Should there be any changes or signs or symptoms of a stroke we will be happy to see them back sooner. Thank you for allowing us to participate in this patient's care. If there are any questions or concerns please do not hesitate to contact us. (2) AAA (abdominal aortic aneurysm) without rupture: Code(s): I71.4 - Abdominal aortic aneurysm, without rupture Category: Medical Qualifiers: Abdominal aorta location: infrarenal aorta Qualified Code(s): I71.43 - Infrarenal abdominal aortic aneurysm, without rupture Plan: It has been 2 years since the surveillance of his aortic aneurysm. We will schedule an aneurysm follow-up in approximately 1 year's time. He is being maintained on a high-dose statin. I do recommend the addition low-dose aspirin. Once again he will follow up with us in 1 year's time. Thank you for allowing us to assist in his care. Orders: Orders US abdominal aortic aneurysm 1 Year I71.43 - Infrarenal abdominal aortic aneurysm, without rupture Coding Level of Care Code Est Pt Level 4 (14547) Complex EM visit Add On G2211 Diagnoses Carotid stenosis, bilateral I65.23 Infrarenal abdominal aortic aneurysm (AAA) without rupture I71.43 Abdominal aorta location: infrarenal aorta
--- OUTSIDE RECORDS SUMMARY | 2024-11-29 14:57 | XMS_ITS | Encounter Summary ---
Author Organization [facility] Address [address] [place] [address] Care Team Providers Care Founder President And Ceo Name Role Phone Pcp, Emily Primary Care Provider Collin Xiao MD Unavailable [phone] Encounter Details Date Type Department Care Team (Late st Contact Info) Description 09/16/2016 Scanned Document [facility] [address] [place] [id number] Harish Blank MD Needs Valid Address Social History Tobacco Use Types Packs/Day Years Used Date Smoking Tobacco: Never Assessed Sex and Gender Information Value Date Recorded Sex Assigned at Not on file Gender Identity Not on file Sexual Orientation Not on file documented as of this encounter Plan of Treatment Not on file documented as of this encounter Visit Diagnoses Not on filedocumented in this encounter Care Teams Founder President And Ceo Relationship Specialty Start Date End Date Pcp, Emily PCP - General General Medicine 04/02/18 10/12/18 Collin Reeder MD [address] [place] [address] [address] [place] [address] Referring Provider Surgery, Neurosurgery 04/02/18 [facility] Irineo [address] [place] [id number] Primary Care Provider 10/13/18 Nursing Home Director Luly Bacon 10/13/18 documented as of this encounter
--- OUTSIDE RECORDS SUMMARY | 2024-11-29 14:57 | XMS_ITS | Clinical Summary ---
Author Organization [facility] Address [address] [place] [address] Care Team Providers Care Shellfish Bed Worker Name Role Phone Unavailable Primary Care Provider Unavailabl e Social History Tobacco Use Types Packs/Day Years Used Date Smoking Tobacco: Never Assessed Sex and Gender Information Value Date Recorded Sex Assigned at Not on file Gender Identity Not on file Sexual Orientation Not on file Plan of Treatment Not on file
--- OUTSIDE RECORDS SUMMARY | 2024-11-29 14:57 | XMS_ITS | Encounter Summary ---
Author Organization [facility] Address [address] [place] [address] Care Team Providers Care Concrete Swimming Pool Installer Name Role Phone Pcp, Emily Primary Care Provider Collin Xiao MD Unavailable [phone] Encounter Details Date Type Department Care Team (Late st Contact Info) Description 02/26/2016 Scanned Document [facility] [address] [facility] [address] [address] [place] [id number] Maricel Frances PA [address] [facility] [address] [place], [place] [id number] Social History Tobacco Use Types Packs/Day Years Used Date Smoking Tobacco: Never Assessed Sex and Gender Information Value Date Recorded Sex Assigned at Not on file Gender Identity Not on file Sexual Orientation Not on file documented as of this encounter Plan of Treatment Not on file documented as of this encounter Visit Diagnoses Not on filedocumented in this encounter Care Teams Concrete Swimming Pool Installer Relationship Specialty Start Date End Date Pcp, Emily PCP - General General Medicine 04/02/18 10/12/18 Collin Reeder MD [address] [facility] [address] [place] [address] Referring Provider Surgery, Neurosurgery 04/02/18 [facility] Irineo [address] [place] [id number] Primary Care Provider 10/13/18 Stephy Quinonesu Cusano 10/13/18 documented as of this encounter
--- OUTSIDE RECORDS SUMMARY | 2024-11-29 14:57 | XMS_ITS | Encounter Summary ---
Author Organization [facility] Address [address] [place] [address] Care Team Providers Care Network Relay Tester Name Role Phone Pcp, Emily Primary Care Provider Collin Xiao MD Unavailable [phone] Encounter Details Date Type Department Care Team (Late st Contact Info) Description 06/08/2018 Scanned Document [facility] [address] [place] [phone] Harish Blank MD Needs Valid Address Social History Tobacco Use Types Packs/Day Years Used Date Smoking Tobacco: Former Smokeless Tobacco: Never Comments:40 years ago Alcohol Use Standard Drinks/Week Comments Yes 0 (1 standard drink = 0.6 oz pur e alcohol) Sex and Gender Information Value Date Recorded Sex Assigned at Not on file Gender Identity Not on file Sexual Orientation Not on file documented as of this encounter Plan of Treatment Not on file documented as of this encounter Visit Diagnoses Not on filedocumented in this encounter Care Teams Network Relay Tester Relationship Specialty Start Date End Date Pcp, No PCP - General General Medicine 04/02/18 10/12/18 Collin Reeder MD [address] [place] [address] [address] [place] [address] Referring Provider Surgery, Neurosurgery 04/02/18 [facility] Irineo [address] [place] [address] Primary Care Provider 10/13/18 Oil Tanker Captain Luly Bacon 10/13/18 documented as of this encounter
--- OUTSIDE RECORDS SUMMARY | 2024-11-29 14:57 | XMS_ITS | Encounter Summary ---
Author Organization [facility] Address [address] [place] [address] Care Team Providers Care Unit Secy Name Role Phone Collin Reeder MD Unavailable Encounter Details Date Type Department Care Team (Late st Contact Info) Description 11/26/2019 Scanned Document [facility] Neurosurgery, Scan Social History Tobacco Use Types Packs/Day Years [...] on filedocumented in this encounter Care Teams Unit Secy Relationship Specialty Start Date End Date Collin Reeder MD [address] [place] [address] [address] [place] [address] Referring Provider Surgery, Neurosurgery 04/02/18 [facility] DO Swetha Cabello [facility] [address] [place] [address] Primary Care Provider 10/13/18 Power Lineman Luly Bacon 10/13/18 documented as of this encounter
--- OUTSIDE RECORDS SUMMARY | 2024-11-29 14:57 | XMS_ITS | Encounter Summary ---
Author Organization [facility] Address [address] [place] [address] Care Team Providers Care Conservation Engineer Name Role Phone Collin Reeder MD Unavailable [phone] Encounter Details Date Type Department Care Team (Late st Contact Info) Description 12/27/2019 Scanned Document [facility] NEUROSURGERY SCAN Neurosurgery, Scan Social History Tobacco [...] on filedocumented in this encounter Care Teams Conservation Engineer Relationship Specialty Start Date End Date Collin Reeder MD [address] [place] [address] [address] [place] [address] Referring Provider Surgery, Neurosurgery 04/02/18 [facility] DO Swetha Cabello [facility] [address] [place] [address] Primary Care Provider 10/13/18 Advertising Material Distributor Luly Bacon 10/13/18 documented as of this encounter
--- OUTSIDE RECORDS SUMMARY | 2024-11-29 14:57 | XMS_ITS | Encounter Summary ---
Author Organization [facility] Address [address] [place] [address] Care Team Providers Care Agronomy Internship Name Role Phone Pcp, Emily Primary Care Provider Collin Xiao MD Unavailable [phone] Encounter Details Date Type Department Care Team (Late st Contact Info) Description 11/04/2017 Scanned Document [facility] [address] [facility] [address] [place] [address] Maricel Frances PA 65 [facility] [address] [place], [place] [phone] Social History Tobacco Use Types Packs/Day Years Used Date Smoking Tobacco: Never Assessed Sex and Gender Information Value Date Recorded Sex Assigned at Not on file Gender Identity Not on file Sexual Orientation Not on file documented as of this encounter Plan of Treatment Not on file documented as of this encounter Visit Diagnoses Not on filedocumented in this encounter Care Teams Agronomy Internship Relationship Specialty Start Date End Date Pcp, Emily PCP - General General Medicine 04/02/18 10/12/18 Collin Reeder MD [address] [facility] [address] [place] [address] Referring Provider Surgery, Neurosurgery 04/02/18 [facility] Irineo [address] [place] [address] Primary Care Provider 10/13/18 Stephy Quinonesu Cusano 10/13/18 documented as of this encounter
--- OUTSIDE RECORDS SUMMARY | 2024-11-29 14:57 | XMS_ITS | Encounter Summary ---
Author Organization [facility] Address [address] [place] [address] Care Team Providers Care Color Corrector Name Role Phone Pcp, Emily Primary Care Provider Collin Xiao MD Unavailable [phone] Encounter Details Date Type Department Care Team (Late st Contact Info) Description 04/15/2016 Scanned Document [facility] [address] [facility] [address] [place] [phone] Maricel Frances PA 65 [facility] [address] [place], [place] [phone] Social History Tobacco Use Types Packs/Day Years Used Date Smoking Tobacco: Never Assessed Sex and Gender Information Value Date Recorded Sex Assigned at Not on file Gender Identity Not on file Sexual Orientation Not on file documented as of this encounter Plan of Treatment Not on file documented as of this encounter Visit Diagnoses Not on filedocumented in this encounter Care Teams Color Corrector Relationship Specialty Start Date End Date Pcp, Emily PCP - General General Medicine 04/02/18 10/12/18 Collin Reeder MD [address] [facility] [address] [place] [address] Referring Provider Surgery, Neurosurgery 04/02/18 [facility] Irineo [address] [place] [address] Primary Care Provider 10/13/18 Stephy Quinonesu Cusano 10/13/18 documented as of this encounter
--- OUTSIDE RECORDS SUMMARY | 2024-11-29 14:57 | XMS_ITS | Encounter Summary ---
Author Organization [facility] Address [address] [place] [address] Care Team Providers Care Separator Operator Shellfish Meats Name Role Phone Collin Reeder MD Unavailable Encounter Details Date Type Department Care Team (Late st Contact Info) Description 11/12/2018 Scanned Document [facility] [address] [facility] [address] [place] [address] Farhan Clark MD [address] [place] [address] [address] [place], [place] [phone] Social History Tobacco Use Types Packs/Day Years [...] on filedocumented in this encounter Care Teams Separator Operator Shellfish Meats Relationship Specialty Start Date End Date Collin Reeder MD [address] [place] [address] [address] [place], [place] [address] Referring Provider Surgery, Neurosurgery 04/02/18 Shannan Cabello DO [address] [place] [address] [address] [place] [address] Primary Care Provider 10/13/18 Electronic Specialist Luyl Bacon 10/13/18 documented as of this encounter
--- OUTSIDE RECORDS SUMMARY | 2024-11-29 14:57 | XMS_ITS | Encounter Summary ---
Author Organization [facility] Address [address] [place] [address] Care Team Providers Care Spring Internship Name Role Phone Pcp, Emily Primary Care Provider Collin Xiao MD Unavailable Encounter Details Date Type Department Care Team (Late st Contact Info) Description 07/28/2016 Scanned Document [facility] [address] [facility] [address] [place] [address] Maricel Frances PA 65 [facility] [address] [place], [place] [phone] Social History Tobacco Use Types Packs/Day Years Used Date Smoking Tobacco: Never Assessed Sex and Gender Information Value Date Recorded Sex Assigned at Not on file Gender Identity Not on file Sexual Orientation Not on file documented as of this encounter Plan of Treatment Not on file documented as of this encounter Visit Diagnoses Not on filedocumented in this encounter Care Teams Spring Internship Relationship Specialty Start Date End Date Pcp, Emily PCP - General General Medicine 04/02/18 10/12/18 Collin Reeder MD [address] [facility] [address] [place] [address] Referring Provider Surgery, Neurosurgery 04/02/18 [facility] Irineo [address] [place] [address] Primary Care Provider 10/13/18 Stephy Quinonesu Cusano 10/13/18 documented as of this encounter
--- OUTSIDE RECORDS SUMMARY | 2024-11-29 14:57 | XMS_ITS | Clinical Summary ---
Author Organization [facility] Address [address] [place] [address] Care Team Providers Care Switchboard Operator Assistant Name Role Phone Collin Reeder MD Unavailable [phone] Allergies Active Allergy Reactions Criticality Noted Date Comments Penicillins Swelling Medium 04/02/2018 Medications Medication Sig Dispensed Refills Start Date End Date Status lidocaine (LIDODERM) 5 % patchIndications:Face t joint disease of lumbosacral region Place 1 patch on the skin daily. Apply patch and leave on for 12 hours then remove. Patch may remain on skin for 12 hours per day. 30 patch 1 04/02/2018 Active HYDROcodone-acetamino phen (NORCO) 5-325 mg per tablet Hydrocodone-Acetam inophen 5-325 MG Oral Tablet ; Start Date: 11/22/2015; End Date: 11/22/2015 Active metoPROLOL SUCCINATE (TOPROL-XL) 25 MG 24 hr tablet TK 1 T PO QD 6 04/20/2018 Active diclofenac epolamine (FLECTOR) 1.3 % PatchIndications:Midl ine low back pain without sciatica, unspecified chronicity Place 1 patch on the skin 2 (two) times a day. Apply to most painful area. Apply to clean, dry, and intact skin. 5 patch 1 06/28/2018 Active aspirin enteric coated (ECOTRIN LOW STRENGTH) 81 MG EC tablet Take 81 mg by mouth daily. Active atorvastatin (LIPITOR) 40 MG tablet Take 40 mg by mouth daily. Active buPROPion (WELLBUTRIN XL) 300 MG 24 hr tablet TK 1 T PO QD IN THE MORNING 2 09/12/2018 Active SUPPLY DME MISCIndications:Chron ic bilateral low back pain without sciatica,Facet joint disease of lumbosacral region Apply OSKA device to affected region for 3 hrs per day. 1 Device 02/10/2019 Active Active Problems Problem Noted Date Diagnosed Date Facet joint disease of lumbosacral region 2017 Thoracic back pain 2018 Postlaminectomy syndrome 05/14/2016 Symptoms referable to back 05/14/2016 Social History Tobacco Use Types Packs/Day Years Used Date Smoking Tobacco: Former Smokeless Tobacco: Never Comments:40 years ago Alcohol Use Standard Drinks/Week Comments Yes 0 (1 standard drink = 0.6 oz pur e alcohol) Sex and Gender Information Value Date Recorded Sex Assigned at Not on file Gender Identity Not on file Sexual Orientation Not on file Last Filed Vital Signs Vital Sign Reading Time Taken Comments Blood Pressure 119/83 04/20/2019 9:09 AM EDT Pulse 77 04/20/2019 9:09 AM EDT Temperature 36.7 ??C (98 ??F) 04/20/2019 9:09 AM EDT Respiratory Rate 18 04/20/2019 9:09 AM EDT Oxygen Saturation 99% 04/13/2019 9:05 AM EDT Inhaled Oxygen Concentration - - Weight 83.9 kg (185 lb) 04/20/2019 9:09 AM EDT Height 177.8 cm (5' 10 ) 04/20/2019 9:09 AM EDT Body Mass Index 26.54 04/20/2019 9:09 AM EDT Plan of Treatment Health Maintenance Due Date Last Done Comments Hepatitis C Virus Screening 1961 HIV Screening 1974 DTaP/Tdap/Td Vaccines (1 - Tdap) 01/21/1980 Colonoscopy 2006 Pneumococcal Vaccines 50+ (1 of 1 - PCV) 2011 Zoster (Shingles) Vaccine (1 of 2) 2011 Influenza Vaccine 06/09/2024 COVID-19 Vaccine ( - 2023-2 5 season) 2024 RSV Vaccine 60 years and old er and Patients (1 - 1-dose 75+ series) 01/21/2036 Hepatitis B Vaccines Aged Out No long er eligible based on patient's age to complete this topic Pneumococcal Vaccine: Pediat laura (0-5 Years) and At-Risk Patients (6 to 49 Years) Aged Out No longer eligible b ased on patient's age to complete this topic Care Teams Switchboard Operator Assistant Relationship Specialty Start Date End Date Collin Reeder MD [address] [facility] [address] [place] [address] Referring Provider Surgery, Neurosurgery 04/02/[address] [place] [address] Primary Care Provider 10/13/18 Inspector Balance Bridge Luly Bacon 10/13/18
--- OUTSIDE RECORDS SUMMARY | 2024-11-29 14:57 | XMS_ITS | Encounter Summary ---
Author Organization [facility] Address [address] [place] [address] Care Team Providers Care Wound Treatment Rn Name Role Phone Pcp, Emily Primary Care Provider Collin Xiao MD Unavailable [phone] Encounter Details Date Type Department Care Team (Late st Contact Info) Description 04/28/2018 Scanned Document [facility] [address] [place] [phone] Harish Blank MD Needs Valid Address Social [...] on filedocumented in this encounter Care Teams Wound Treatment Rn Relationship Specialty Start Date End Date Pcp, No PCP - General General Medicine 04/02/18 10/12/18 Collin Reeder MD [address] [place] [address] [address] [place] [address] Referring Provider Surgery, Neurosurgery 04/02/18 [facility] Irineo [address] [place] [address] Primary Care Provider 10/13/18 Armed Security Guard Luly Bacon 10/13/18 documented as of this encounter
--- OUTSIDE RECORDS SUMMARY | 2024-11-29 14:57 | XMS_ITS | Encounter Summary ---
Author Organization [facility] Address [address] [place] [address] Care Team Providers Care Fine Grader Name Role Phone Pcp, Emily Primary Care Provider Collin Xiao MD Unavailable [phone] Encounter Details Date Type Department Care Team (Late st Contact Info) Description 11/23/2017 Scanned Document [facility] [address] [facility] [address] [place] [address] Maricel Frances PA 65 [facility] [address] [place], [place] [phone] Social History Tobacco Use Types Packs/Day Years Used Date Smoking Tobacco: Never Assessed Sex and Gender Information Value Date Recorded Sex Assigned at Not on file Gender Identity Not on file Sexual Orientation Not on file documented as of this encounter Plan of Treatment Not on file documented as of this encounter Visit Diagnoses Not on filedocumented in this encounter Care Teams Fine Grader Relationship Specialty Start Date End Date Pcp, Emily PCP - General General Medicine 04/02/18 10/12/18 Collin Reeder MD [address] [facility] [address] [place] [address] Referring Provider Surgery, Neurosurgery 04/02/18 [facility] Irineo [address] [place] [address] Primary Care Provider 10/13/18 Stephy Quinonesu Cusano 10/13/18 documented as of this encounter
--- OUTSIDE RECORDS SUMMARY | 2024-11-29 14:57 | XMS_ITS | Encounter Summary ---
Author Organization [facility] Address [address] [place] [address] Care Team Providers Care Certified Orthotic Fitter Name Role Phone Collin Reeder MD Unavailable Encounter Details Date Type Department Care Team (Late st Contact Info) Description 02/16/2019 Scanned Document [facility] [address] [facility] [address] [place] [address] Lidya Willis W, SPECIAL POLICE OFFICER [address] [facility] [address] [place] [address] Social History Tobacco Use Types Packs/Day Years [...] on filedocumented in this encounter Care Teams Certified Orthotic Fitter Relationship Specialty Start Date End Date Collni Reeder MD [address] [place] [address] [address] [place] [address] Referring Provider Surgery, Neurosurgery 04/02/18 [facility] DO Irineo [address] [place] [address] [address] [place] [address] Primary Care Provider 12/5/18 Toggle Press Folder And Feeder Luly Bacon 10/13/18 documented as of this encounter
--- OUTSIDE RECORDS SUMMARY | 2024-11-29 14:57 | XMS_ITS | Encounter Summary ---
Author Organization [facility] Address [address] [place] [address] Care Team Providers Care Oil Refinery Operator Name Role Phone Pcp, Emily Primary Care Provider Collin Xiao MD Unavailable [phone] Encounter Details Date Type Department Care Team (Late st Contact Info) Description 02/26/2016 Scanned Document [facility] [address] [facility] [address] [place] [address] Maricel Frances PA 65 [facility] [address] [place], [place] [phone] Social History Tobacco Use Types Packs/Day Years Used Date Smoking Tobacco: Never Assessed Sex and Gender Information Value Date Recorded Sex Assigned at Not on file Gender Identity Not on file Sexual Orientation Not on file documented as of this encounter Plan of Treatment Not on file documented as of this encounter Visit Diagnoses Not on filedocumented in this encounter Care Teams Oil Refinery Operator Relationship Specialty Start Date End Date Pcp, Emily PCP - General General Medicine 04/02/18 10/12/18 Collin Reeder MD [address] [facility] [address] [place] [address] Referring Provider Surgery, Neurosurgery 04/02/18 [facility] Irineo [address] [place] [address] Primary Care Provider 10/13/18 Stephy Quinonesu Cusano 10/13/18 documented as of this encounter
--- OUTSIDE RECORDS SUMMARY | 2024-11-29 14:57 | XMS_ITS | Encounter Summary ---
Author Organization [facility] Address [address] [place] [address] Care Team Providers Care Supervisor Mending Name Role Phone Pcp, Emily Primary Care Provider Collin Xiao MD Unavailable [phone] Encounter Details Date Type Department Care Team (Late st Contact Info) Description 09/16/2016 Scanned Document [facility] [address] [facility] [address] [place] [address] Maricel Frances PA 65 [facility] [address] [place], [place] [phone] Social History Tobacco Use Types Packs/Day Years Used Date Smoking Tobacco: Never Assessed Sex and Gender Information Value Date Recorded Sex Assigned at Not on file Gender Identity Not on file Sexual Orientation Not on file documented as of this encounter Plan of Treatment Not on file documented as of this encounter Visit Diagnoses Not on filedocumented in this encounter Care Teams Supervisor Mending Relationship Specialty Start Date End Date Pcp, Emily PCP - General General Medicine 04/02/18 10/12/18 Collin Reeder MD [address] [facility] [address] [place] [address] Referring Provider Surgery, Neurosurgery 04/02/18 [facility] Irineo [address] [place] [address] Primary Care Provider 10/13/18 Stephy Quinonesu Cusano 10/13/18 documented as of this encounter
--- OUTSIDE RECORDS SUMMARY | 2024-11-29 14:57 | XMS_ITS | Encounter Summary ---
Author Organization [facility] Address [address] [place] [address] Care Team Providers Care Adult Nurse Practitioner Name Role Phone Pcp, Emily Primary Care Provider Collin Xiao MD Unavailable [phone] Encounter Details Date Type Department Care Team (Late st Contact Info) Description 04/21/2018 Scanned Document [facility] 65 [facility] [address] [place] [address] Maricel Frances PA 65 [facility] [address] [place], [place] [phone] Social History Tobacco Use Types Packs/Day Years [...] on filedocumented in this encounter Care Teams Adult Nurse Practitioner Relationship Specialty Start Date End Date Pcp, No PCP - General General Medicine 04/02/18 10/12/18 Collin Reeder MD [address] [place] [address] [address] [place] [address] Referring Provider Surgery, Neurosurgery 04/02/18 [facility] DO Irineo [address] [place] [address] [address] [place] [address] Primary Care Provider 10/13/18 Tare Weigher Luly Bacon 10/13/18 documented as of this encounter
--- OUTSIDE RECORDS SUMMARY | 2024-11-29 14:57 | XMS_ITS | Encounter Summary ---
Author Organization [facility] Address [address] [place] [address] Care Team Providers Care Filteration Operator Name Role Phone Collin Reeder MD Unavailable Encounter Details Date Type Department Care Team (Late st Contact Info) Description 05/05/2019 Scanned Document [facility] [address] [facility] [address] [place] [address] Farhan Clark MD [address] [place] [address] [address] [place], [place] [phone] Social History Tobacco Use Types Packs/Day Years [...] on filedocumented in this encounter Care Teams Filteration Operator Relationship Specialty Start Date End Date Collin Reeder MD [address] [place] [address] [address] [place], [place] [address] Referring Provider Surgery, Neurosurgery 04/02/18 Shannan Cabello DO [address] [place] [address] [address] [place] [address] Primary Care Provider 10/13/18 Mill Work Luly Bacon 10/13/18 documented as of this encounter
--- OUTSIDE RECORDS SUMMARY | 2024-11-29 14:57 | XMS_ITS | Encounter Summary ---
Author Organization [facility] Address [address] [place] [address] Care Team Providers Care Paid Search Marketing Analyst Name Role Phone Collin Reeder MD Unavailable Encounter Details Date Type Department Care Team (Late st Contact Info) Description 12/27/2019 Scanned Document [facility] NEUROSURGERY SCAN Neurosurgery, Scan Social History Tobacco [...] on filedocumented in this encounter Care Teams Paid Search Marketing Analyst Relationship Specialty Start Date End Date Collin Reeder MD [address] [place] [address] [address] [place] [address] Referring Provider Surgery, Neurosurgery 04/02/18 [facility] DO Swetha Cabello [facility] [address] [place] [address] Primary Care Provider 10/13/18 Clamp Jig Assembler Luly Bacon 10/13/18 documented as of this encounter
== END 2024-11-29 13:29 | disposition home or self-care (01) ==
PROVIDERS: PCP Nurse Practitioner Family; Visit Provider Surgery Vascular Surgery
DX: I65.23 Occlusion and stenosis of bilateral carotid arteries (principal); I71.43 Infrarenal abdominal aortic aneurysm, without rupture
CPT/HCPCS: 99214

== ENCOUNTER 2025-10-16 10:20 | Outpatient (REF) | payer OTHER, SELFPAY ==
[2025-10-16 13:34] LABS: MANUAL DIFF FLAG NO
[2025-10-16 13:44] LABS: Appearance Urine Clear; Glucose Urine UA Negative (Negative); PH 5.5 (5.0-9.0); Specific Gravity - Urine 1.020 (1.005-1.025)
[2025-10-16 13:48] LABS: Hematocrit 45.1 % (42.0-52.0); Hemoglobin 14.7 g/dl (14.0-18.0); Imm Gran Abs Auto 0.01 X10*3/uL (0.00-0.03); Imm Gran Pct Auto 0.2 % (0.0-0.4); Lymphocytes Absolute Auto 2.2 X10*3/uL (1.2-4.9); Mean Corpuscular HGB Conc 32.6 g/dl (31.0-36.0); Mean Corpuscular Hemoglobin 30.8 pg (27.0-33.0); Mean Corpuscular Volume 94.5 fL (80.0-98.0); NRBC Abs Auto 0.000 X10*3/uL (0.0-0.012); NRBC Pct Auto 0.0 /100WBC (0.0-0.2); Platelet Count 182 X10*3/uL (160-400); Red Blood Count 4.77 X10*6/uL (4.60-5.80); White Blood Count 6.4 X10*3/uL (4.8-10.8)
[2025-10-16 14:36] LABS: Alanine Aminotransferase 26 U/L (0-40); Albumin Level 3.9 g/dL (3.5-5.0); Alkaline Phosphatase 80 U/L (39-117); Anion Gap 9 (12-20); Aspartate Amino Transferase 36 U/L (5-37); Blood Urea Nitrogen 17 mg/dL (9-16); Calcium 9.1 mg/dL (8.4-10.2); Carbon Dioxide 30 mmol/L (22-29); Chloride 107 mmol/L (96-108); Cholesterol 118 mg/dL (<200); Estimated Glomerular Filt Rate > 60; HDL Cholesterol 35 mg/dL (>40); Potassium 4.9 mmol/L (3.3-5.1); Sodium 141 mmol/L (135-145); Total Protein 6.6 g/dL (6.5-8.0); Triglycerides 59 mg/dL (<150)
== END 2025-10-16 10:21 | disposition home or self-care (01) ==
LOC: HO.HMGCLDS 10:20
PROVIDERS: PCP Nurse Practitioner Family; Visit Provider Nurse Practitioner Family
DX: Z00.00 Encounter for general adult medical examination without abnormal findings (principal); Z12.5 Encounter for screening for malignant neoplasm of prostate; Z13.6 Encounter for screening for cardiovascular disorders; Z13.29 Encounter for screening for other suspected endocrine disorder; R97.20 Elevated prostate specific antigen [PSA]
CPT/HCPCS: 36415; 80053; 80061; 81003; 84153; 84443; 85025

== ENCOUNTER 2025-10-18 15:18 | Outpatient (AMB) | payer OTHER, SELFPAY ==
--- NOTE | 2025-10-18 15:24 | A.OFFPC_ITS ---
Vital Signs 10/18/25 15:26 Height 5 ft 7 in Weight 159 lb BMI 24.9 BP 120/60 Blood Pressure Location Rt brachial Position Sitting Respiration 16 Pulse 57 Pulse Source Pulse Oximeter Pulse Oximetry (%) 99 Oxygen Delivery Method Room Air Intake Visit Reasons: Annual PE Geophysical Prospecting Permit Agent Required: No Accompanied by: Self / Same As Patient Allergies Penicillins (PENICILLINS) Allergy (Unknown, Verified 10/18/25 15:27) THROAT SWELLED UP Tobacco use date assessed: 10/18/25 Fall risk assessment: No Falls in past year Last assessed Fall Risk: 10/18/25 Dental Screening Dental Screen Date: 10/18/25 Did you have a dental visit in the last 12 months?: Yes Did you have a dental problem in the last 6 months where you did not have access to dental care?: No Was dental information given to patient?: Patient has dentist HPI Annual PE HPI Details History of Present Illness The patient is a 65 year old male presenting for a physical exam. He reports feeling great and denies chest pain, shortness of breath, abdominal pain, hematochezia, constipation, diarrhea, suicidal ideation, or homicidal ideation. He has a history of a coronary artery bypass graft in 2017 and sees a slubber hand annually for follow-up. Recent labs, including a PSA, were noted to be impressive. He was previously referred to gastroenterology and received the prep drink. Health Maintenance - The patient is here for a physical exa m. - Recent labs, including PSA, were compl eted and were noted to be impressive. - He has a standing annual follow-up wit h a slubber hand. - A prior referral to gastroenterology w as not completed. Social History Review of Systems - Constitutional: Reports feeling great. - Cardiovascular: Denies chest pain. - Respiratory: Denies dyspnea. - Gastrointestinal: Denies abdominal kirill n, hematochezia, constipation, and diarrhea. - Psychiatric: Denies suicidal or homici speedy ideation. Physical Exam General: Cooperative, healthy appearing, comfortable, no acute distress and well developed Orientation: Patient oriented x3 Limitations: No limitations Head: Normal to inspection Ears: Hearing grossly normal bilaterally Nose: Normal external nose present Face and sinus: Normal facial exam Eyes: Appearance normal, both eyes and all related structures Neck: Normal visual inspection and Yes full ROM Respiratory: Normal respiratory effort and able to speak in complete sentences. Clear to auscultation bilaterally Cardiovascular: Regular rate and rhythm. Normal S1 and S2. systolic murmur GI: Normal to inspection. Soft to palpation and nontender : testicles without masses/lesions and no hernias appreciated Skin: No rashes or lesions noted Neuro: Patient oriented x3 Extremities: Normal to inspection Results - Labs: Recent lab work, including a PSA , was noted to be impressive. Plan 1. Encounter For General Adult Medical E xamination The patient feels well and has no acute complaints. Recent lab results were noted to be favorable. 2. History Of Coronary Artery Bypass Jamir beulah The patient has a history of coronary artery bypass graft surgery in 2017. He maintains regular annual follow-up with his slubber hand. 3. Unspecified Gastrointestinal Disorder A prior referral to gastroenterology was not completed, though the patient reports receiving the preparatory drink. Discussion Notes I discussed with the patient that his recent lab results were impressive. Patient Instructions - A referral to a manufacturing production technician alvin l be submitted for you. - You will likely need to get clearance from your slubber hand before any procedure with the manufacturing production technician. - Continue your regular yearly follow-up appointments with your slubber hand. [facility] Surgical History History of back surgery History of open heart surgery (~2017) Social History Housing: House Patient Tobacco Use Status: Former Tobacco user e-Cigarette/Vaping Use: Never Used Second Hand Smoke Exposure: No service: No Current occupational status: retired Cognitive needs: No Hearing needs: No Vision needs: No Questionnaire PHQ-9 Over the last 2 weeks, how often have you been bothered by any of the following problems? 1. Little interest or pleasure in doing things: not at all 2. Feeling down, depressed, or hopeless: not at all 3. Trouble falling or staying asleep, or sleeping too much: not at all 4. Feeling tired or having little energy: not at all 5. Poor appetite or overeating: not at all 6. Feeling bad about yourself - or that you are a failure or have let yourself or your family down: not at all 7. Trouble concentrating on things, such as reading the newspaper or watching television: not at all 8. Moving or speaking so slowly that other people could have noticed. Or the opposite - being so fidgety or restless that you have been moving around a lot more than usual: not at all 9. Thoughts that you would be better off or of hurting yourself in some way: not at all Total score: 0 Depression Screening Interpretation: Negative Depression Screening Done: Yes 70469 - PHQ-9 Billing: Yes Source: Developed by Drs. Luis Magaña, Barbara Pelletier, Dennis Rosenthal and colleagues, with an educational tennille from [employer] [place]. Thrive Questionnaire Date Thrive assessed: 06/05/25 I am a: Patient What is your living situation today?: I have a steady place to live Within the past 12 months, did the food you bought not last and you didn't have the money to get more?: Never true Within the past 12 months, did you worry whether your food would run out before you got money to buy more?: Never true Do you have trouble paying for medicines?: No Do you have trouble getting transportation to medical appointments?: No Do you have trouble paying your heating and electricity bill?: No Do you have trouble taking care of your child, family member or friend?: No Do you have trouble with day-to-day activities such as bathing, preparing meals, shopping, managing finances, etc.?: No Are you currently unemployed and looking for a job?: No Are you interested in more education?: No Please select the resources that you would like help with: None Currently or been in a relationship where the following occur: No concerns reported THRIVE Score: 0 CIRO-7 AMB Questionnaire CIRO-7 Date CIRO - 7 assessed: 10/18/25 Feeling nervous, anxious, or on edge: 0 = Not at all Not being able to stop or control worryin = Not at all Worrying too much about different things: 0 = Not at all Trouble relaxin = Not at all Being so restless that it is hard to sit still: 0 = Not at all Becoming easily annoyed or irritable: 0 = Not at all Feeling afraid as if something awful might happen: 0 = Not at all Total CIRO-7 score (0-4 normal; 5-9 mild; 10-14 moderate; 15-21 severe): 0 Source: Developed by Drs. Luis Magaña, Barbara Pelletier, Dennis Rosenthal and colleagues, with an educational tennille from [employer] [place]. CIRO-7 Assessment Billing CIRO-7 Assessment Tool: CIRO-7 Assessment 54404 Physical exam (Primary Care) Vital Signs: Last Vital Signs Pulse 57 10/18/25 15:26 Resp 16 10/18/25 15:26 BP 120/60 10/18/25 15:26 Pulse Ox 99 10/18/25 15:26 Oxygen Delivery Method Room Air 10/18/25 15:26 BMI result Body Mass Index 24.9 Tobacco/Smoking Status: Tobacco use Status Tobacco use date assessed 10/18/25 10/18/25 15:33 Patient Tobacco Use Status Former Tobacco user 10/18/25 15:33 e-Cigarette/Vaping Use Never Used 10/18/25 15:33 PHQ-9: PHQ-9 Score PHQ-9: Total score 0 10/18/25 15:34 Depression Screening Interpretation: Negative Thrive Assessment: Date of Thrive Assessment Date Thrive assessed 06/05/25 10/18/25 15:33 Currently or been in a relationship where the following occur: No concerns reported Coding Level of Care Code Est Pt Prev Care 40-64y(47818) Diagnoses Screening for colon cancer Z12.11 Physical exam Z00.00 Additional Codes CIRO-7 Assessment Billing - CIRO-7 Assessment Tool: CIRO-7 Assessment 96847 ([id number]) PHQ-9 - 60258 - PHQ-9 Billing: Yes ([id number]) Assessment & Plan Assessment & Plan (1) Screening for colon cancer: Code(s): Z12.11 - Encounter for screening for malignant neoplasm of colon Category: Medical (2) Physical exam: Code(s): Z00.00 - Encounter for general adult medical examination without abnormal findings Category: Medical Plan .
[2025-10-18 15:26] VITALS: BP 120/60; PULSE 57; RESP 16; O2SAT 99; BMI 24.9
--- OUTSIDE RECORDS SUMMARY | 2025-10-18 23:49 | XMS_ITS | Encounter Summary ---
Author Organization [facility] Address [address] [place] [address] Care Team Providers Care Dry House Operator Name Role Phone Collin Reeder MD Unavailable Encounter Details Date Type Department Care Team (Late st Contact Info) Description 02/16/2019 Scanned Document [facility] [address] [place] [address] Lidya Willis W, BAR FINISH OPERATOR [address] [facility] [address] [place] [address] Social History Tobacco Use Types Packs/Day Years Used Date Smoking Tobacco: Former Smokeless Tobacco: Never Comments:40 years ago Alcohol Use Standard Drinks/Week Comments Yes 0 (1 standard drink = 0.6 oz pur e alcohol) Sex and Gender Information Value Date Recorded Sex Assigned at Not on file Legal Sex Male 4:17 PM EDT Gender Identity Not on file Sexual Orientation Not on file documented as of this encounter Plan of Treatment Not on file documented as of this encounter Visit Diagnoses Not on filedocumented in this encounter Care Teams Dry House Operator Relationship Specialty Start Date End Date Collin Reeder MD [address] [place] [address] [address] [place] [address] Referring Provider Surgery, Neurosurgery 04/02/18 [facility] DO Irineo [address] [place] [address] [address] [place] Torrez [address] Primary Care Provider 10/13/18 Grey Goods Examiner Luly Bacon 10/13/18 documented as of this encounter
--- OUTSIDE RECORDS SUMMARY | 2025-10-18 23:49 | XMS_ITS | Encounter Summary ---
Author Organization [facility] Address [address] [place] [address] Care Team Providers Care Driver'S Education Instructor Name Role Phone Collin Reeder MD Unavailable Encounter Details Date Type Department Care Team (Late st Contact Info) Description 12/27/2019 Scanned Document [facility] NEUROS[facility]ERY SCAN Neurosurgery, Scan Social History Tobacco [...] on filedocumented in this encounter Care Teams Driver'S Education Instructor Relationship Specialty Start Date End Date Collin Reeder MD [address] [place] [address] [address] [place] [address] Referring Provider Surgery, Neurosurgery 04/02/18 [facility] DO Swetha Cabello [facility] [address] [place]rez [address] Primary Care Provider 10/13/18 Software Quality Specialist Luly Bacon 10/13/18 documented as of this encounter
--- OUTSIDE RECORDS SUMMARY | 2025-10-18 23:49 | XMS_ITS | Encounter Summary ---
Author Organization [facility] Address [address] [place] [address] Care Team Providers Care Fermenter Champagne Name Role Phone Collin Reeder MD Unavailable Encounter Details Date Type Department Care Team (Late st Contact Info) Description 12/27/2019 Scanned Document [facility] NEUROSURGERY SCAN Neurosurgery, Scan Social History [...] on filedocumented in this encounter Care Teams Fermenter Champagne Relationship Specialty Start Date End Date Collin Reeder MD [address] [place] [address] [address] [place] [address] Referring Provider Surgery, Neurosurgery 04/02/18 [facility] DO Swetha Cabello [facility] [address] [place] Torrez [address] Primary Care Provider 10/13/18 Advertising Intern Luly Bacon 10/13/18 documented as of this encounter
--- OUTSIDE RECORDS SUMMARY | 2025-10-18 23:49 | XMS_ITS | Encounter Summary ---
Author Organization [facility] Address [address] [place] [address] Care Team Providers Care [place] Attorney Name Role Phone Collin Reeder MD Unavailable Encounter Details Date Type Department Care Team (Late st Contact Info) Description 12/27/[address] [facility] NEUROSURGERY SCAN Neurosurgery, Scan Social History Tobacco [...] on filedocumented in this encounter Care Teams United [place] Attorney Relationship Specialty Start Date End Date Collin Reeder MD [address] [place] [address] [address] [place] [address] Referring Provider Surgery, Neurosurgery 04/02/18 [facility] DO Swetha Cabello [facility] [address] EM[place] Torrez [address] Primary Care Provider 10/13/18 Glost Tile Sorter Luly Bacon 10/13/18 documented as of this encounter
--- OUTSIDE RECORDS SUMMARY | 2025-10-18 23:49 | XMS_ITS | Encounter Summary ---
Author Organization [facility] Address [address] [place] [address] Care Team Providers Care Bacon De Rinder Name Role Phone Pcp, Emily Primary Care Provider Collin Xiao MD Unavailable [phone] Encounter Details Date Type Department Care Team (Late st Contact Info) Description 02/26/2016 Scanned Document [facility] [address] [place] [address] Maricel Frances PA [address] [place], [place] [id number] Social History Tobacco Use Types Packs/Day Years [...] on filedocumented in this encounter Care Teams Bacon De Rinder Relationship Specialty Start Date End Date Pcp, No PCP - General General Medicine 04/02/18 10/12/18 Collin Reeder MD [address] [place] [address] [address] [place] [address] Referring Provider Surgery, Neurosurgery 04/02/18 [facility] DO Irineo [address] [place] [address] [address] [place] Torrez [address] Primary Care Provider 10/13/18 Inspecting Engineer Luly Bacon 10/13/18 documented as of this encounter
--- OUTSIDE RECORDS SUMMARY | 2025-10-18 23:49 | XMS_ITS | Encounter Summary ---
Author Organization [facility] Address [address] [place] [address] Care Team Providers Care Codifier Name Role Phone Pcp, Emily Primary Care Provider Collin Xiao MD Unavailable [phone] Encounter Details Date Type Department Care Team (Late st Contact Info) Description 11/23/2017 Scanned Document [facility] [address] [place] [address] Maricel Frances PA [address] [place], [place] [id number] Social History Tobacco Use Types Packs/Day Years [...] on filedocumented in this encounter Care Teams Codifier Relationship Specialty Start Date End Date Pcp, No PCP - General General Medicine 04/02/18 10/12/18 Collin Reeder MD [address] [place] [address] [address] [place] [address] Referring Provider Surgery, Neurosurgery 04/02/18 [facility] DO Irineo [address] [place] [address] [address] [place] Torrez [address] Primary Care Provider 10/13/18 Senior Web Designer Luly Bacon 10/13/18 documented as of this encounter
--- OUTSIDE RECORDS SUMMARY | 2025-10-18 23:49 | XMS_ITS | Encounter Summary ---
Author Organization [facility] Address [address] [place] [address] Care Team Providers Care Radio Division Lieutenant Name Role Phone Pcp, Emily Primary Care Provider Collin Xiao MD Unavailable [phone] Encounter Details Date Type Department Care Team (Late st Contact Info) Description 11/04/2017 Scanned Document [facility] [address] [place] [address] Maricel Frances PA [address] [place], [place] [id number] Social History Tobacco Use Types Packs/Day Years [...] on filedocumented in this encounter Care Teams Radio Division Lieutenant Relationship Specialty Start Date End Date Pcp, No PCP - General General Medicine 04/02/18 10/12/18 Collin Reeder MD [address] [place] [address] [address] [place] [address] Referring Provider Surgery, Neurosurgery 04/02/18 [facility] DO Irineo [address] [place] [address] [address] [place] Torrez [address] Primary Care Provider 10/13/18 Children'S Program Coordinator Luly Bacon 10/13/18 documented as of this encounter
--- OUTSIDE RECORDS SUMMARY | 2025-10-18 23:49 | XMS_ITS | Encounter Summary ---
Author Organization [facility] Address [address] [place] [address] Care Team Providers Care Bingo Caller Name Role Phone Collin Reeder MD Unavailable [phone] Encounter Details Date Type Department Care Team (Late st Contact Info) Description 12/27/2019 Scanned Document [facility] NEUROSURGERY SCAN Neurosurgery, Scan Social [...] on filedocumented in this encounter Care Teams Bingo Caller Relationship Specialty Start Date End Date Collin Reeder MD [address] [place] [address] [address] [place] [address] Referring Provider Surgery, Neurosurgery 04/02/18 [facility] DO Swetha Cabello [facility] [address] [place] Torrez [address] Primary Care Provider 10/13/18 Probation And Parole Officer Luly Bacon 10/13/18 documented as of this encounter
--- OUTSIDE RECORDS SUMMARY | 2025-10-18 23:49 | XMS_ITS | Encounter Summary ---
Author Organization [facility] Address [address] [place] [address] Care Team Providers Care Barrel Bridge Assembler Name Role Phone Pcp, Emily Primary Care Provider Collin Xiao MD Unavailable [phone] Encounter Details Date Type Department Care Team (Late st Contact Info) Description 09/16/2016 Scanned Document [facility] [address] [place] [address] Harish Blank MD Social History Tobacco Use Types Packs/Day Years [...] on filedocumented in this encounter Care Teams Barrel Bridge Assembler Relationship Specialty Start Date End Date Pcp, Emily PCP - General General Medicine 04/02/18 10/12/18 Collin Reeder MD [address] [place], [place] [address] [address] [place] [address] Referring Provider Surgery, Neurosurgery 04/02/18 [facility] [address] [place]rez [address] Primary Care Provider 10/13/18 Mechanical Project Engineer Luly Bacon 10/13/18 documented as of this encounter
--- OUTSIDE RECORDS SUMMARY | 2025-10-18 23:49 | XMS_ITS | Encounter Summary ---
Author Organization [facility] Address [address] [place] [address] Care Team Providers Care Scientific Laboratory Supervisor Name Role Phone Pcp, Emily Primary Care Provider Collin Xiao MD Unavailable [phone] Encounter Details Date Type Department Care Team (Late st Contact Info) Description 06/08/2018 Scanned Document [facility] [address] [place] [address] Harish Blank MD Social History Tobacco Use [...] on filedocumented in this encounter Care Teams Scientific Laboratory Supervisor Relationship Specialty Start Date End Date Pcp, No PCP - General General Medicine 04/02/18 10/12/18 Collin Reeder MD [address] [place] [address] [address] [place] [address] Referring Provider Surgery, Neurosurgery 04/02/18 [facility] [place] [address] Primary Care Provider 10/13/18 Director Of Market Analysis Luly Bacon 10/13/18 documented as of this encounter
--- OUTSIDE RECORDS SUMMARY | 2025-10-18 23:49 | XMS_ITS | Encounter Summary ---
Author Organization [facility] Address [address] [place] [address] Care Team Providers Care Sap Bi Developer Name Role Phone Pcp, Emily Primary Care Provider Collin Xiao MD Unavailable [phone] Encounter Details Date Type Department Care Team (Late st Contact Info) Description 04/21/2018 Scanned Document [facility] [address] [place] [address] Maricel Frances PA [address] [place], [place] [id number] Social History Tobacco Use Types Packs/Day Years [...] on filedocumented in this encounter Care Teams Sap Bi Developer Relationship Specialty Start Date End Date Pcp, No PCP - General General Medicine 04/02/18 10/12/18 Collin Reeder MD [address] [facility] [address] [place] [address] Referring Provider Surgery, Neurosurgery 04/02/18 Shannan Cabello DO [address] [place]rez [address] Primary Care Provider 10/13/18 Coal Weigher Luly Bacon 10/13/18 documented as of this encounter
--- OUTSIDE RECORDS SUMMARY | 2025-10-18 23:49 | XMS_ITS | Data Portability ---
Author Organization [facility], Main Office Address [address] [place] [address] Care Team Providers Care Manager Critical Care Name Role Phone JASE SARMIENTO Server Administrator Assessment No assessment recorded. Plan of Treatment Reminders Order Date Submit Date Provider Last Modified By Organization Details Last Modified Time Details Appointments None recorded. Lab None recorded. Referral None recorded. Procedures None recorded. Surgeries None recorded. Imaging XR, lumbar spine 2017 018 [facility], [address], [address], [place], [address], 8 18:27:12 MRI, lumbar spine, w/wo contrast - 58 yo M, thoracic and lower back pain that worsens with back extension 2017 018 [facility], [address], [address], [place], [address], 8 16:06:47 Medication Orders None recorded. Patient TargetsNo targets recorded. Patient Instructions Encounter Date Encounter Id Patient Instructions Last Modified By Organization Details Last Modified Time 2018 [id number] Neftali is h ere for neurosurgical evaluation of his lower back and buttock pain. He did have a T12 burst fracture which required surgical intervention of a T11-L2 fusion. He reports he has always had chronic back pain. He has not undergone any recent physical therapy, acute care nurse practitioner, injection therapy. He feels that this has worsened over the last 2 months. He states his pain worsens with walking, sitting, standing, driving, bending, and lifting. He states that his pain as a 9/10 at its worst. He has numbness and tingling in the back. He denies any pain going down the legs, feet, toes. He reports that the previous neurosurgeon gave him a permanent lifting restriction. On examination he ambulates with a normal gait. He is able to walk on his toes, heels, tandem gait. He has great strength throughout both iliopsoas, quadriceps, hamstring, anterior tibialis, EHL, and gastrocnemius, bilaterally. He has normal sensation in the lower extremities. He has intact patellar and Achilles reflexes. Upper extremity strength, sensation, reflexes are normal. He does have decreased range of motion of the back most noted with back extension. He does have 7 well-healed incisions on his back. Patient's MRI from [facility] on 01/01/2016 the impression is incorrect. It should state that he had a T11-L2 fusion. I do not see any disc herniations, spinal stenosis, compression fractures on this MRI. I have asked him to undergo a set of lumbar x-rays with flexion and extension. I've also asked him to undergo a MRI of the lumbar spine and compare this to the 2016 MRI. I do not see any clear radicular symptoms. This may be all related to chronic pain. He will follow up after having the images performed. Not available 01/22/2018 16:10:05 02/01/2018 [id number] Patient has persistent low back pain going into the buttocks particularly with extension and lying flat. During his normal course of the day he has persistent lower back pain. He tries to carry heavy object this exacerbates his pain. Reviewing his imaging both x-ray and MRI scan he has degenerative changes present at the adjacent level with facet arthropathy at the L3-4 level. Also mild to moderate degenerative changes below that in my opinion this does not require any type of surgical intervention. X-rays show that he has a solid fusion with no loosening of his hardware. Moving forward for this gentleman he is not in any type of formal pain management program. To his credit he has not been taking any type of pain medication. Moving forward he's going to have a chronic pain condition in his lower back, and should be at least be evaluated and managed moving forward for his pain. One option for this gentleman would be to have a block of his instrumentation to see if this gives him any relief of his pain. If it does I would repeat the procedure to make sure that it is reliable. If he does not get relief from blockage of his instrumentation then I would recommend at least 2 procedures where the facets at the L3-L4 level are blocked as well. To see if this gives him any relief. If a portion of his pain seems to be instrument related then consideration for removal instrumentation could be discussed. If the facets are more of his origin of pain in his lower back then consideration for radiofrequency lesion to help treat his pain could also be considered. Not available 02/03/2018 14:27:07 Reason for Referral None Reported. Results Created Date Observation Date Name Description Value Unit Range Abnormal Flag Note LastModifiedBy Organization Detail LastModifiedTime 01/29/20 18 01/28/2018 MRI, lumba r spine , w/wo contr ast EXAMIN ATION: MR LUMBAR SPINE WITHOU T AND WITH CONTRA ST CLINIC AL INFORM ATION: Thorac ic and lower back pain that worsen s with back extens ion. COMPAR JANELL: Lumbar spine MRI 2015. TECHNI QUE: MRI of the lumbar spine was obtain ed using routin e sequen agustín withou t and with contra st. Intrav enous contra st: Gadavi st 10 mL. FINDIN GS: Transi tional anatom y again noted with the same counti ng system used as the previo us report assumi ng 5 nonrib -beari ng lumbar -type verteb ral bodies and S1 to be partia lly lumbar ized, sharin g a nearly comple tely develo ped interv ertebr al disc with S2. Stable chroni c superi or endpla te compre ssion deform ity at L1 using this counti ng system . Partia lly imaged postop erativ e change s follow ing hoisting pile driving engineer ior instru mented fusion within the imaged lower thorac ic spine throug h the L3 level. The remain ing lumbar verteb ral bodies are mainta ined. There is stable slight retrol isthes is of L4 on L5. No acute fractu res. There is no bone marrow edema. There is no pathol ogic intrat hecal enhanc ement. The conus termin ates at the L2 level. Severe left renal atroph y is again noted with chroni c left-s ided urothe lial thicke guy. Stable focal ectasi a of the infrar enal abdomi nal aorta measur ing up to 2.8 cm. T12-L1 : Slight superi or L1 endpla te retrop ulsion contin ues to mildly indent the ventra l thecal sac withou t centra l canal stenos is. The L1-L2 and the L2-L3 disc contou rs remain normal . There is no centra l canal stenos is and there is no forami nal stenos is at these levels . L3-L4: Disc contou r remain s normal . Stable appear ing severe right and modera te left hypert rophic facet arthro faheem. There is no centra l canal stenos is and there is no signif icant forami nal stenos is. L4-L5: Diffus e annula r disc bulge with an increa se in size of a far left latera l disc protru sandy result s in mass effect on the extraf oramin al left L4 nerve root. There is modera te bilate ral hypert rophic facet arthro faheem. Centra l canal remain s patent . Modera te left and mild right forami nal stenos is. L5-S1: Slight retrol isthes is. Uncove red disc. Modera te bilate ral hypert rophic facet arthro faheem with facet joint effusi ons. Ligame ntum flavum thicke guy. Uncove red disc contin ues to contac t the chase sing S1 nerve roots within the subart icular zones bilate rally. Simila r left greate r than right latera l disc osteop hyte protru sandy that likely contac ts the extraf oramin al L5 nerve roots bilate rally. Modera te bilate ral forami nal stenos is. S1-S2: Disc contou r remain s normal . Mild bilate ral facet arthro faheem. No centra l canal stenos is and no forami nal stenos is. IMPRES SANDY: - Redemo nstrat ed transi tional anatom y with the same counti ng system used as the previo us report assumi ng 5 nonrib -beari ng lumbar -type verteb ral bodies and S1 to be partia lly lumbar ized, kia g a nearly comple tely develo ped interv ertebr al disc with S2. - Piero nick imaged postop erativ e change s follow ing hoisting pile driving engineer ior instru mented fusion within the imaged lower thorac ic spine throug h the L3 level. - At L5-S1, slight retrol isthes is and multif actori al degene rative change s contin ue to result in modera te bilate ral forami nal stenos is with disc osteop hyte likely contac ting the extraf oramin al L5 nerve roots bilate rally. - At L4-L5 there has been an increa se in size of a far left latera l disc protru sandy that now result s in mass effect on the extraf oramin al left L4 nerve root. - At L3-L4 there is stable appear ing severe right and modera te left hypert rophic facet arthro faheem withou t centra l canal stenos is nor forami nal stenos is. - Stable focal ectasi a of the infrar enal abdomi nal aorta measur ing up to 2.8 cm. - Redemo nstrat ed severe left renal atroph y. Thank you for referr ing your patien t to us, Brennen Jalloh MD [phone] (Elect kalina nick Signed - 2017 16:02) Copy: ONE CALL [employer] L ONE CALL [facility]ICA L [address] [place], [place] [phone] [email or web address] [facility] [address] [facility] [address], [place], [address], 02/01/2018 08:06:17 01/30/20 18 01/28/2018 XR, lumbo sacra l spine , 4 or more view EXAMIN ATION: XR LUMBOS ACRAL SPINE CLINIC AL INFORM ATION: Back pain. Obtain flexio n and extens ion radiog raphs. COMPAR JANELL: MRI lumbar spine 2017. MRI lumbar spine 2015. Compar janell of flexio n and extens ion views demons trate no gross interv al sublux ations . TECHNI QUE: AP, repeat AP, latera l, flexio n latera l, extens ion latera l, coned latera l radiog raphs of the lumbar spine. 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 Bilate ral transp edicul ar screws with interl ocking hoisting pile driving engineer ior spinal fixati on rods are presen t at the levels of T11, T12, L2, L3. An anteri or wedge deform ity of the L1 verteb ral body is presen t and is grossl y unchan ged in config uratio n compar ed with 2015. Minima l anteri or interb abhi bridgi ng is presen t at the level of T12-L1 grossl y unchan ged compar ed with 2015. 2 mm retrol isthes is of L4 on L5 is grossl y unchan ged in degree compar ed with 2015. Aside from the L1 verteb ral body descri bed above, no additi onal verteb ral body compre ssion deform ities are visual ized. Partia l visual izatio n is made of modera te interv ertebr al disc space narrow ing at T10-T1 1. Diffus e aortoi liac calcif ic athero sclero sis is presen t and demons trates mild ectasi a of the infrar enal abdomi nal aorta as visual ized to better advant age on the compar janell MRI of 2017. IMPRES SANDY: 1. L1 verteb ral body compre ssion deform ity with bilate ral transp edicul ar screws and interl ocking rods at the levels of T11, T12, L1 and L2. No gross sublux ations compar janell betwee n flexio n and extens ion views. Modera te anteri or wedge deform ity of L1 unchan ged compar ed with 2015. 2. 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 Thank you for referr ing your patien t to us, Mitesh amezcua MD [phone] (Elect kalina nick Signed - 2017 18:21) Copy: ONE CALL MEDICA L ONE CALL [employer]ICA L [address] JASMINA VICK [phone] AMIE Woodruff , [email or web address] [facility] [place] [address], [place], [address], 02/01/2018 08:06:17 Result Notes Documentation Provider Name and Address Organization Details Recorded Time Mri, Lumbar Spine, W/wo Contrast : EXAMINATION: MR LUMBAR SPINE WITHOUT AND WITH CONTRAST CLINICAL INFORMATION: Thoracic and lower back pain that worsens with back extension. COMPARISON: Lumbar spine MRI 01/01/2016. TECHNIQUE: MRI of the lumbar spine was obtained using routine sequences without and with contrast. Intravenous contrast: Gadavist 10 mL. FINDINGS: Transitional anatomy again noted with the same counting system used as the previous report assuming 5 nonrib-bearing lumbar-type vertebral bodies and S1 to be partially lumbarized, sharing a nearly completely developed intervertebral disc with S2. Stable chronic superior endplate compression deformity at L1 using this counting system. Partially imaged postoperative changes following posterior instrumented fusion within the imaged lower thoracic spine through the L3 level. The remaining lumbar vertebral bodies are maintained. There is stable slight retrolisthesis of L4 on L5. No acute fractures. There is no bone marrow edema. There is no pathologic intrathecal enhancement. The conus terminates at the L2 level. Severe left renal atrophy is again noted with chronic left-sided urothelial thickening. Stable focal ectasia of the infrarenal abdominal aorta measuring up to 2.8 cm. T12-L1: Slight superior L1 endplate retropulsion continues to mildly indent the ventral thecal sac without central canal stenosis. The L1-L2 and the L2-L3 disc contours remain normal. There is no central canal stenosis and there is no foraminal stenosis at these levels. L3-L4: Disc contour remains normal. Stable appearing severe right and moderate left hypertrophic facet arthropathy. There is no central canal stenosis and there is no significant foraminal stenosis. L4-L5: Diffuse annular disc bulge with an increase in size of a far left lateral disc protrusion results in mass effect on the extraforaminal left L4 nerve root. There is moderate bilateral hypertrophic facet arthropathy. Central canal remains patent. Moderate left and mild right foraminal stenosis. L5-S1: Slight retrolisthesis. Uncovered disc. Moderate bilateral hypertrophic facet arthropathy with facet joint effusions. Ligamentum flavum thickening. Uncovered disc continues to contact the traversing S1 nerve roots within the subarticular zones bilaterally. Similar left greater than right lateral disc osteophyte protrusion that likely contacts the extraforaminal L5 nerve roots bilaterally. Moderate bilateral foraminal stenosis. S1-S2: Disc contour remains normal. Mild bilateral facet arthropathy. No central canal stenosis and no foraminal stenosis. IMPRESSION: - Redemonstrated transitional anatomy with the same counting system used as the previous report assuming 5 nonrib-bearing lumbar-type vertebral bodies and S1 to be partially lumbarized, sharing a nearly completely developed intervertebral disc with S2. - Partially imaged postoperative changes following posterior instrumented fusion within the imaged lower thoracic spine through the L3 level. - At L5-S1, slight retrolisthesis and multifactorial degenerative changes continue to result in moderate bilateral foraminal stenosis with disc osteophyte likely contacting the extraforaminal L5 nerve roots bilaterally. - At L4-L5 there has been an increase in size of a far left lateral disc protrusion that now results in mass effect on the extraforaminal left L4 nerve root. - At L3-L4 there is stable appearing severe right and moderate left hypertrophic facet arthropathy without central canal stenosis nor foraminal stenosis. - Stable focal ectasia of the infrarenal abdominal aorta measuring up to 2.8 cm. - Redemonstrated severe left renal atrophy. Thank you for referring your patient to us, Diego Jalloh MD [phone] (Electronically Signed - 01/28/2018 16:02) Copy: [facility] [place] [address] Alfonso Jones PA-C [address] [place] [address] [address], [place], [address], [place] [facility] 02/01/2018 08:06:17 Xr, Lumbosacral Spine, 4 Or More View : EXAMINATION: XR LUMBOSACRAL SPINE CLINICAL INFORMATION: Back pain. Obtain flexion and extension radiographs. COMPARISON: MRI lumbar spine 01/28/2018. MRI lumbar spine 01/01/2016. Comparison of flexion and extension views demonstrate no gross interval subluxations. TECHNIQUE: AP, repeat AP, lateral, flexion lateral, extension lateral, coned lateral radiographs of the lumbar spine. 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 Bilateral transpedicular screws with interlocking posterior spinal fixation rods are present at the levels of T11, T12, L2, L3. An anterior wedge deformity of the L1 vertebral body is present and is grossly unchanged in configuration compared with 01/01/2016. Minimal anterior interbody bridging is present at the level of T12-L1 grossly unchanged compared with 01/01/2016. 2 mm retrolisthesis of L4 on L5 is grossly unchanged in degree compared with 01/01/2016. Aside from the L1 vertebral body described above, no additional vertebral body compression deformities are visualized. Partial visualization is made of moderate intervertebral disc space narrowing at T10-T11. Diffuse aortoiliac calcific atherosclerosis is present and demonstrates mild ectasia of the infrarenal abdominal aorta as visualized to better advantage on the comparison MRI of 01/28/2018. IMPRESSION: 1. L1 vertebral body compression deformity with bilateral transpedicular screws and interlocking rods at the levels of T11, T12, L1 and L2. No gross subluxations comparison between flexion and extension views. Moderate anterior wedge deformity of L1 unchanged compared with 01/01/2016. 2. 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 Thank you for referring your patient to us, Mitesh Ratliff MD [phone] (Electronically Signed - 01/29/2018 18:21) Copy: [facility] [address] [place] [address] PATIENT , Alfonso Jones PA-C [address] [facility] [address], [place], [address], [place] [facility] 02/01/2018 08:06:17 Problems Name Problem SNOMED Code Status Onset Date Resolution Date Notes Provider Name and Address Organization Details Recorded Time Low back pain 654371272 Active 018 Alfonso Jones PA-C [address], [place], [address], [place] [facility] 8 14:38:18 Thoracic back pain 151883850 Active 018 Alfonso Jones PA-C [address], [place], [address], [facility] 8 14:38:19 Problem Notes None recorded. Procedures Surgical History Date Name Laterality Status Provider Name and Address Organization Details Recorded Time Heart Surgery completed Hilda Cordero [facility] 2018 14:08:56 Imaging Results None recorded. Procedure Notes None recorded. Medical Equipment None Reported. Allergies No known drug allergies Medications Name Sig Start Date Stop Date Status Note LastModified by Organization Details LastModified Time atorvastatin 40 mg tablet active Not Available Not Available Not Available simvastatin 40 mg tablet active Not Available Not Available No t Available pantoprazole 20 mg tablet,delayed release 01/20 completed Not Available Not Available Not Available simvastatin 20 mg tablet 01/20 completed Not Available Not Available Not Available metoprolol tartrate 50 mg tablet 01/20 completed Not Available Not Available Not Available diltiazem CD 120 mg capsule,extend ed release 24 hr 01/20 completed Not Available Not Available Not Available furosemide 20 mg tablet 01/20 completed Not Available Not Available Not Available metoprolol succinate ER 25 mg tablet,extende d release 24 hr active Not Available Not Available Not Available polyethylene glycol 3350 17 gram/dose oral powder 01/20 completed Not Available Not Available Not Available bupropion HCl XL 300 mg 24 hr tablet, extended release active Not Available Not Available Not Available bupropion HCl XL 150 mg 24 hr tablet, extended release 01/20 completed Not Available Not Available Not Available Lyrica 50 mg capsule 01/20 completed Not Available Not Available Not Available aspirin 81mg active Not Available Not Avail able Not Available oxycodone 10 mg tablet 01/20 completed Not Available Not Available Not Available Vitals Date Recorded Body weight Body mass index (BMI) Body height Body temperature Provider Name and Address Organization Details Last Updated DateTime 2018 41361.34 g 28.4 kg/m2 172.72 cm 98.3 [degF] Hilda Alcaraz [facility] 2018 14:17:54 Date Recorded Body height Body mass index (BMI) Body weight Body temperature Provider Name and Address Organization Details Last Updated DateTime 02/01/2018 172.72 cm 28.3 kg/m2 41332.18 g 98.2 [degF] Hilda Alcaraz [facility] 02/01/2018 16:50:29 Social History Question Answer Notes LastModified by [employer] Details LastModified Time Tobacco Smoking Status Former Smoker Hilda Alcaraz null, [facility] 2018 14:08:40 What Is Your Level Of Caffeine Consumption? Heavy [email or web address] Information not available 2018 What Was The Date Of Your Most Recent Tobacco Screening? 02/01/2018 Information n ot available 06/01/2019 Sex: Unknown Functional Status Question Answer Note LastModified by [employer] Details LastModified Time What is your level of alcohol consumption? 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 Family History Relationship Description Onset Age of this Age Resolved Age Notes LastModified by Organization Details LastModified Time Father Family history of malignant neoplasm 81 [email or web address] Not available 01/20 14:09:13 Father Hypertensive disorder [email or web address] Not available 01/20 14:09:32 Medical History Condition Response Coronary Artery Disease N Other N Anxiety/Depression Y Parkinson's Disease N MRSA N Head Trauma/Injury N Brain Tumors N PTSD N Anemia N Multiple Sclerosis N Meningitis N Spine/Back Problems N Heart Attack (PR) Y Neurological Problems N Diabetes N Anxiety Disorder Y Bleeding Disorder N Arthritis N Tuberculosis N AIDS/HIV N Cerebral Palsy N Cancer N Back Problems N Stroke N Asthma N Neck Injury N Epilepsy/Seizures N Thyroid Disorder N Hepatitis N Aneurysm N Liver Disease N Neuropathy N Heart Disease Y Headaches N Hypertension N Kidney Disease N Past Encounters Encounter ID Performer Location Encounter Start Date Encounter Closed Date Diagnosis/Indication Diagnosis SNOMED-CT Code Diagnosis ICD10 Code Diagnosis IMO Codes Diagnosis Note [id number] Alfonso Jones PA-C Main [facility] [address] [facility] [address] [place] [address] 2018 13:32:59 2018 15:01:41 Thoracic back pain 124333585 M54.6 Low back pain 748196379 M54.5 Compressio n fracture of lumbar spine 040187327 M48.56XA [id number] Collin Reeder MD Main Office [address] [place] [address] 02/01/2018 08:48:01 02/01/2018 09:29:46 Thoracic back pain 126786135 M54.6 Low back pain 952282704 M54.5 Compressio n fracture of lumbar spine 538048249 M48.56XA Arthropath y of lumbar facet joint 242623931 M48.8X6 Health Concerns Section Related Observation LastModified by Organization Detai ls LastModified Time None Recorded Concern Status LastModified by Organization Details LastModified Time None Recorded Advance Directives Directive None Recorded Payers Insurance Date Sequence Insurance Name Policy Number Policy Peng Covered Member ID Peng Member ID Guarantor Name 02/01/2018 [facility] Neftali Carney Notes Date Note Type Note Provider Name and Address Organization Details Recorded Time 2018 text/html L-spineReported by PatientHPIFor associated symptoms, patient reportsnumbnessandti ngling. For location, patient reportsbilateral(low er back, buttocks, tingling worse in left back and buttocks. once in awhile, radiation in the left leg.). For quality, patient reportsaching (numbness, pins/needles),consta nt, andworsening. For severity, patient reportsmoderate (to severe). For duration, patient reports6 years. 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 For alleviating factors, patient reportsnarcoticsandn saids. For aggravating factors, patient reportssitting (driving),standing,w alking, andbending/squatting . For previous surgery, patient reportssurgical procedure: (10/2012, lumbar fusion dr. denise). For prior imaging, patient reportsmri (lumbar spine jxr 01/01/2016). For previous injections, patient reportsnone. For previous pt, patient reportsdid not help. For work related, patient reportsyes. For working, patient reportsno. Collin Reeder MD [address] [place], [place] [address] [address], [place], [address], [facility] 01/22/2018 16:10:33 02/01/2018 text/html L-spineReported by PatientHPIFor associated symptoms, patient reportsnumbnessandti ngling. For location, patient reportsbilateral(low er back, buttocks, tingling worse in left back and buttocks. once in awhile, radiation in the left leg. today, 02/01/2018, no changes reported.). For quality, patient reportsaching (numbness, pins/needles),consta nt, andworsening. For severity, patient reportsmoderate (to severe). For duration, patient reports6 years. 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 For alleviating factors, patient reportsnarcoticsandn saids. For aggravating factors, patient reportssitting (driving),standing,w alking, andbending/squatting . For previous surgery, patient reportssurgical procedure: (10/2012, lumbar fusion dr. denise). For prior imaging, patient reportsmri (lumbar spine jxr 01/2018). For previous injections, patient reportsnone. For previous pt, patient reportsdid not help. For work related, patient reportsyes. For working, patient reportsno. Collin Reeder MD [address], [place], [address], [facility] 02/03/2018 14:27:50
--- OUTSIDE RECORDS SUMMARY | 2025-10-18 23:49 | XMS_ITS | Encounter Summary ---
Author Organization [facility] Address [address] [place] [address] Care Team Providers Care Compressor Assembler Name Role Phone Collin Reeder MD Unavailable [phone] Encounter Details Date Type Department Care Team (Late st Contact Info) Description 12/27/2019 Scanned Document [facility] NEUROSURGERY SCAN Neurosurgery, Scan Social History [...] on filedocumented in this encounter Care Teams Compressor Assembler Relationship Specialty Start Date End Date Collin Reeder MD [address] [place] [address] [address] [place] [address] Referring Provider Surgery, Neurosurgery 04/02/18 [facility] DO Swetha Cabello [facility] [address] [place] [address] Primary Care Provider 10/13/18 Internet Ecommerce Specialist Luly Bacon 10/13/18 documented as of this encounter
--- OUTSIDE RECORDS SUMMARY | 2025-10-18 23:49 | XMS_ITS | Clinical Summary ---
Author Organization [employer] [facility] Prior to 04/08/25 Address [address] [place] [address] Care Team Providers Care Medical Photographer Name Role Phone Unavailable Primary Care Provider Unavailabl e Social History Tobacco Use Types Packs/Day Years Used Date Smoking Tobacco: Never Assessed Sex and Gender Information Value Date Recorded Sex Assigned at Not on file Gender Identity Not on file Sexual Orientation Not on file Plan of Treatment Not on file
--- OUTSIDE RECORDS SUMMARY | 2025-10-18 23:49 | XMS_ITS | Encounter Summary ---
Author Organization [facility] Address [address] [place] [address] Care Team Providers Care Cds Sales Advisor Name Role Phone Pcp, Emily Primary Care Provider Collin Xiao MD Unavailable [phone] Encounter Details Date Type Department Care Team (Late st Contact Info) Description 04/15/2016 Scanned Document [facility] [address] [place] [address] Maricel Frances PA [address] [place], [place] [id number] Social History Tobacco Use Types Packs/Day Years [...] on filedocumented in this encounter Care Teams Cds Sales Advisor Relationship Specialty Start Date End Date Pcp, No PCP - General General Medicine 04/02/18 10/12/18 Collin Reeder MD [address] [place] [address] [address] [place] [address] Referring Provider Surgery, Neurosurgery 04/02/18 [facility] DO Irineo [address] [place] [address] [address] [place] Torrez [address] Primary Care Provider 10/13/18 Reservoir Caretaker Luly Bacon 10/13/18 documented as of this encounter
--- OUTSIDE RECORDS SUMMARY | 2025-10-18 23:49 | XMS_ITS | Encounter Summary ---
Author Organization [facility] Address [address] [place] [address] Care Team Providers Care Neighborhood Planner Name Role Phone Pcp, Emily Primary Care Provider Collin Xiao MD Unavailable [phone] Encounter Details Date Type Department Care Team (Late st Contact Info) Description 07/28/2016 Scanned Document [facility] [address] [place] [address] Maricel Frances PA [address] [place], [place] [id number] Social History Tobacco Use Types Packs/Day Years [...] on filedocumented in this encounter Care Teams Neighborhood Planner Relationship Specialty Start Date End Date Pcp, No PCP - General General Medicine 04/02/18 10/12/18 Collin Reeder MD [address] [place] [address] [address] [place] [address] Referring Provider Surgery, Neurosurgery 04/02/18 [facility] DO Irineo [address] [place] [address] [address] [place] Torrez [address] Primary Care Provider 10/13/18 Regrader Luly Bacon 10/13/18 documented as of this encounter
--- OUTSIDE RECORDS SUMMARY | 2025-10-18 23:49 | XMS_ITS | Encounter Summary ---
Author Organization [facility] Address [address] [place] [address] Care Team Providers Care Power House Control Room Operator Name Role Phone Collin Reeder MD Unavailable Encounter Details Date Type Department Care Team (Late st Contact Info) Description 11/12/2018 Scanned Document [facility] [address] [place] [address] Farhan Clark MD [address] [facility] [address] [place], [place] [id number] Social History Tobacco Use Types Packs/Day Years [...] on filedocumented in this encounter Care Teams Power House Control Room Operator Relationship Specialty Start Date End Date Collin Reeder MD [address] [place] [address] [address] [place] [address] Referring Provider Surgery, Neurosurgery 04/02/18 [facility] DO Irineo [address] [place] [address] [address] [place]rez [address] Primary Care Provider 10/13/18 Valve Technician Luly Bacon 10/13/18 documented as of this encounter
--- OUTSIDE RECORDS SUMMARY | 2025-10-18 23:49 | XMS_ITS | Encounter Summary ---
Author Organization [facility] Address [address] [place] [address] Care Team Providers Care Gaming Manager Name Role Phone Pcp, Emily Primary Care Provider Collin Xiao MD Unavailable [phone] Encounter Details Date Type Department Care Team (Late st Contact Info) Description 04/28/2018 Scanned Document [facility] [address] [place] [address] Harish Blank MD Social History Tobacco Use [...] on filedocumented in this encounter Care Teams Gaming Manager Relationship Specialty Start Date End Date Pcp, No PCP - General General Medicine 04/02/18 10/12/18 Collin Reeder MD [address] [place] [address] [address] [place] [address] Referring Provider Surgery, Neurosurgery 04/02/18 [facility] [place] [address] Primary Care Provider 10/13/18 Aligning Inspector Luly Bacon 10/13/18 documented as of this encounter
--- OUTSIDE RECORDS SUMMARY | 2025-10-18 23:49 | XMS_ITS | Encounter Summary ---
Author Organization [facility] Address [address] [place] [address] Care Team Providers Care Generator Assembler Name Role Phone Collin Reeder MD Unavailable Encounter Details Date Type Department Care Team (Late st Contact Info) Description 05/05/2019 Scanned Document [facility] [address] [place] [address] Farhan Clark MD [address] [facility] [address] [place] [address] Social History Tobacco Use Types Packs/Day Years [...] on filedocumented in this encounter Care Teams Generator Assembler Relationship Specialty Start Date End Date Collin Reeder MD [address] [place] [address] [address] [place] [address] Referring Provider Surgery, Neurosurgery 04/02/18 [facility] DO Irineo [address] [place] [address] [address] [place]rez [address] Primary Care Provider 10/13/18 Director Of Outside Sales Luly Bacon 10/13/18 documented as of this encounter
--- OUTSIDE RECORDS SUMMARY | 2025-10-18 23:49 | XMS_ITS | Encounter Summary ---
Author Organization [facility] Address [address] [place] [address] Care Team Providers Care Pta Name Role Phone Pcp, Emily Primary Care Provider Collin Xiao MD Unavailable [phone] Encounter Details Date Type Department Care Team (Late st Contact Info) Description 09/16/2016 Scanned Document [facility] [address] [place] [address] Maricel Frances PA [address] [place], [place] [phone] Social History Tobacco Use Types Packs/Day Years [...] on filedocumented in this encounter Care Teams Pta Relationship Specialty Start Date End Date Pcp, No PCP - General General Medicine 04/02/18 10/12/18 Collin Reeder MD [address] [place] [address] [address] [place] [address] Referring Provider Surgery, Neurosurgery 04/02/18 [facility] DO Irineo [address] [place] [address] [address] [place] Torrez [address] Primary Care Provider 10/13/18 Factorer Luly Bacon 10/13/18 documented as of this encounter
--- OUTSIDE RECORDS SUMMARY | 2025-10-18 23:49 | XMS_ITS | Encounter Summary ---
Author Organization [facility] Address [address] [place] [address] Care Team Providers Care Trade Mark Attorney Name Role Phone Pcp, Emily Primary Care Provider Collin Xiao MD Unavailable [phone] Encounter Details Date Type Department Care Team (Late st Contact Info) Description 02/26/2016 Scanned Document [facility] [address] [place] [address] Maricel Frances PA [address] [place], [place] [phone] Social History Tobacco Use Types Packs/Day Years [...] on filedocumented in this encounter Care Teams Trade Mark Attorney Relationship Specialty Start Date End Date Pcp, No PCP - General General Medicine 04/02/18 10/12/18 Collin Reeder MD [address] [place] [address] [address] [place] [address] Referring Provider Surgery, Neurosurgery 04/02/18 [facility] DO Irineo [address] [place] [address] [address] [place] Torrez [address] Primary Care Provider 10/13/18 System Support Administrator Luly Bacon 10/13/18 documented as of this encounter
--- OUTSIDE RECORDS SUMMARY | 2025-10-18 23:49 | XMS_ITS | Encounter Summary ---
Author Organization [facility] Address [address] [place] [address] Care Team Providers Care Automatic Engraver Name Role Phone Collin Reeder MD Unavailable Encounter Details Date Type Department Care Team (Late st Contact Info) Description 11/26/2019 Scanned Document [facility] NEUROSURGERY SCAN Neurosurgery, Scan Social [...] on filedocumented in this encounter Care Teams Automatic Engraver Relationship Specialty Start Date End Date Collin Reeder MD [address] [place] [address] [address] [place] [address] Referring Provider Surgery, Neurosurgery 04/02/18 [facility] DO Swetha Cabello [facility] [address] [place] [address] Primary Care Provider 10/13/18 Saturation Diver Luly Bacon 10/13/18 documented as of this encounter
--- OUTSIDE RECORDS SUMMARY | 2025-10-18 23:49 | XMS_ITS | Clinical Summary ---
Author Organization [facility] Address [address] [place] [address] Care Team Providers Care Form Setter Supervisor Name Role Phone Collin Reeder MD Unavailable [phone] Allergies Active Allergy Reactions Criticality Noted Date Comments Penicillins Swelling Medium 04/02/2018 Medications lidocaine (LIDODERM) 5 % patchIndications :Facet joint disease of lumbosacral region Place 1 patch on the skin daily. Apply patch and leave on for 12 hours then remove. Patch may remain on skin for 12 hours per day. 30 patch 1 8 Active HYDROcodone-acet aminophen (NORCO) 5-325 mg per tablet Hydrocodone-A cetaminophen 5-325 MG Oral Tablet ; Start Date: 11/22/2015; End Date: 6 Active metoPROLOL SUCCINATE (TOPROL-XL) 25 MG 24 hr tablet TK 1 T PO QD 6 8 Active diclofenac epolamine (FLECTOR) 1.3 % PatchIndications :Midline low back pain without sciatica, unspecified chronicity Place 1 patch on the skin 2 (two) times a day. Apply to most painful area. Apply to clean, dry, and intact skin. 5 patch 1 8 Active aspirin enteric coated (ECOTRIN LOW STRENGTH) 81 MG EC tablet Take 81 mg by mouth daily. Active atorvastatin (LIPITOR) 40 MG tablet Take 40 mg by mouth daily. Active buPROPion (WELLBUTRIN XL) 300 MG 24 hr tablet TK 1 T PO QD IN THE MORNING 2 8 Active SUPPLY DME MISCIndications: Chronic bilateral low back pain without sciatica,Facet joint disease of lumbosacral region Apply OSKA device to affected region for 3 hrs per day. 1 Device 9 Active Active Problems Problem Noted Date Diagnosed [...] 77 04/20/2019 9:09 AM EDT Temperature 36.7 C (98 F) 04/20/2019 9:09 AM EDT Respiratory Rate 18 [...] Vaccine (1 of 2) 2011 Influenza Vaccine 06/09/2025 COVID-19 Vaccine (1 - 2024-2 6 season) 2025 RSV Vaccine 50 years and old er and Patients (1 - 1-dose 75+ series) 01/21/2036 Hepatitis B Vaccines Aged Out No long er eligible based on patient's age to complete this topic Insurance [employer] , [address] [place] [address] Care Teams Form Setter Supervisor Relationship Specialty Start Date End Date Collin Reeder MD [address] [place] [address] [address] [place] [address] Referring Provider Surgery, Neurosurgery 04/02/[address] [place] [address] Primary Care Provider 10/13/18 Technical Recruiter Luly Bacon 10/13/18
== END 2025-10-18 16:23 | disposition home or self-care (01) ==
LOC: HO.HMCC 15:18
PROVIDERS: PCP Nurse Practitioner Family; Visit Provider Nurse Practitioner Family
DX: Z00.00 Encounter for general adult medical examination without abnormal findings (principal); Z12.11 Encounter for screening for malignant neoplasm of colon

== ENCOUNTER → 2025-10-18 15:18 | Outpatient (BNVA) | payer OTHER, SELFPAY | PROVIDERS: PCP Nurse Practitioner Family; Visit Provider Nurse Practitioner Family | DX: Z13.31 Encounter for screening for depression (principal); Z13.39 Encounter for screening examination for other mental health and behavioral disorders | CPT/HCPCS: 96127 ==